=== PATIENT | male | born 1965 | race Caucasian/White ===

== ENCOUNTER 2020-12-19 16:27 | Inpatient (IN) | payer MEDICAID, SELFPAY ==
[~2020-12-19] VITALS: Ht 172.7 cm; Wt 108.9 kg
--- NOTE | 2020-12-19 16:28 | NUR ---
Placed in room 7 . Placed on surveillance monitor, blood pressure machine and pulse oximeter. To gown for exam. Side rails up.
[2020-12-19 16:30] VITALS: BP_SYST 118
--- NOTE | 2020-12-19 16:30 | NUR ---
RT AT THE BEDSIDE FOR VENT
--- NOTE | 2020-12-19 16:40 | NUR ---
PT BIBA FROM [facility] FOR FEVER AND TACHYCARDIA, PT PRESENTS ON A TRACH TO VENT, CANNON CATH, IV TO RIGHT FA. PULSE 120S, TEMP 99.2. PT IS AWAKE BUT NONVERBAL AND UNRESPONSIVE AT BASELINE. OTHER V/S STABLE
--- NOTE | 2020-12-19 18:15 | NUR ---
ER DR. TAPIA AT THE BEDSIDE EXAMINING PT
[2020-12-19] MEDS ORDERED: NACL 0.9% 1,000 ML IV ONE (18:30)
--- NOTE | 2020-12-19 18:40 | NUR ---
PORTABLE X-RAY AT THE BEDSIDE
--- NOTE | 2020-12-19 18:45 | NUR ---
LAB AT THE BEDSIDE FOR BLOOD DRAW
[2020-12-19 19:05] LABS: HEMOGLOBIN 7.4 g/dL (14.0-18.0); MEAN CORPUSCULAR HEMOGLOBIN 26 pg (27-31); MEAN CORPUSCULAR HGB CONC 31 % (32-36); MEAN CORPUSCULAR VOLUME 84 fL (79.0-98.0); PLATELET COUNT (AUTO) 231 K/uL (130-430); RED BLOOD CELL COUNT(AUTO) 2.84 MIL/uL (4.2-6.2); RED CELL DISTRIBUTION WIDTH 17.8 % (9.0-15.0); WHITE BLOOD COUNT (AUTO) 20.2 K/uL (4.8-10.8)
--- NOTE | 2020-12-19 19:19 | NUR ---
REPORT GIVEN TO VANGIE FRAZIER FOR CONTINUING CARE
--- NOTE | 2020-12-19 19:21 | NUR ---
Spoke with Keysha (patient's daughter) to update patient's status.
[2020-12-19 19:23] LABS: INR 1.1 (0.80-1.20); PROTHROMBIN TIME 11.6 SECS (9.5-12.5)
[2020-12-19 19:27] LABS: BILIRUBIN,URINE NEGATIVE (NEGATIVE); BLOOD, URINE 3+ (NEGATIVE); CLARITY/URINE CLOUDY (CLEAR); COLOR,URINE YELLOW (YELLOW); GLUCOSE,URINE NEGATIVE (NEGATIVE); KETONES,URINE NEGATIVE (NEGATIVE); LEUKOCYTE ESTERASE ,URINE 3+ (NEGATIVE); NITRITE, URINE NEGATIVE (NEGATIVE); PROTEIN URINE 2+ (NEGATIVE); UROBILINOGEN,URINE 0.2 (0.2-1.0)
[2020-12-19 19:35] LABS: ALBUMIN 1.4 g/dL (3.4-4.8); CALCIUM 8.1 mg/dL (8.4-11.0); CREATININE 4.06 mg/dL (0.55-1.30); PHOSPHORUS 3.8 mg/dL (2.7-4.5); TOTAL BILIRUBIN 0.3 mg/dL (0.0-1.0)
[2020-12-19 19:42] LABS: BAND % (MANUAL) 10 % (0-6); BASOPHILS % (MANUAL) 0 % (0-2); EOSINOPHILS % (MANUAL) 0 % (0-7); LYMPHOCYTES % (MANUAL) 19 % (20-46); MONOCYTES % (MANUAL) 7 % (0-11)
[2020-12-19] MEDS ORDERED: AMLO5TAB4 GT (19:42)
[2020-12-19] MEDS ORDERED: ASC500 GT (19:42)
[2020-12-19] MEDS ORDERED: LORA-258 GT (19:42)
[2020-12-19] MEDS ORDERED: ACET160S2 GT (19:42)
[2020-12-19] MEDS ORDERED: FOLI-43 PO (19:42)
[2020-12-19] MEDS ORDERED: ASPI-1393 GT (19:42)
[2020-12-19] MEDS ORDERED: HEPA500015 SUBCUT (19:42)
[2020-12-19] MEDS ORDERED: TAMS-11 GT (19:42)
[2020-12-19] MEDS ORDERED: VANCOMYCIN HCL 1,000 MG in D5W 250 ML IV ONE (19:45)
[2020-12-19] MEDS ORDERED: PIPERACILLIN/TAZOBACTAM 2.25 GM in NS 50 ML IV ONE (19:45)
--- NOTE | 2020-12-19 19:53 | NUR ---
COVID (Rapid) and MRSA swabs collected and sent to lab.
[2020-12-19 19:56] LABS: POTASSIUM 7.1 mmol/L (3.5-5.1)
[2020-12-19] MEDS ORDERED: ALBUTEROL SULFATE 0.083% 2.5 MG/3 ML VIAL.NEB INH ONE (20:00)
[2020-12-19] MEDS ORDERED: INSULIN REGULAR, HUMAN 100 UNITS in NS 99 ML IV ONE ×2 (20:00)
[2020-12-19] MEDS ORDERED: PIPERACILLIN/TAZOBACTAM 2.25 GM VIAL IV ONE (20:11)
[2020-12-19] MEDS ORDERED: INSULIN REGULAR, HUMAN 10 UNITS/0.1 ML INJ ONE (20:12)
--- NOTE | 2020-12-19 20:25 | NUR ---
Started IV Humulin R as protocol - BS 407 - 6 units/hr.
[2020-12-19] MEDS ORDERED: PIPE3.379 IV (20:34)
[2020-12-19] MEDS ORDERED: MULT-1100 GT (20:34)
[2020-12-19] MEDS ORDERED: METO-442 PO (20:34)
[2020-12-19] MEDS ORDERED: ZINC220T3 GT (20:34)
[2020-12-19] MEDS ORDERED: NPH,100V2 SQ (20:34)
[2020-12-19] MEDS ORDERED: PANT40SU2 GT (20:34)
[2020-12-19] MEDS ORDERED: INSU100V7 SUBCUT (20:34)
--- NOTE | 2020-12-19 20:34 | NUR ---
Medication reconciliation completed with information provided by snf. Any prior medication reconciliation on file was reviewed and corrected.
[2020-12-19 20:36] LABS: BACTERIA,URINE MODERATE /HPF (None Seen); WBC,URINE >100 /HPF (0-3); YEAST,URINE Many /HPF (None Seen)
--- NOTE | 2020-12-19 20:40 | NUR ---
Patient will be admitted to care of Dr. Penaloza. Admitted to telemetry unit.
[2020-12-19] MEDS ORDERED: VANCOMYCIN HCL 1000 MG/VIAL IV ONE (20:54)
--- NOTE | 2020-12-19 21:22 | NUR ---
RT at bedside for breathing treatment and ABG.
--- NOTE | 2020-12-19 21:25 | NUR ---
BS 273- Drip Humulin R as protocol to 3 units/hour
--- NOTE | 2020-12-19 22:25 | NUR ---
BS 270- continue drip 3 units/hour.
[2020-12-19 23:07] VITALS: BP_SYST 149
[2020-12-19 23:10] VITALS: BP_SYST 149
--- NOTE | 2020-12-19 23:43 | NUR ---
Called Dr. Ramirez and reported BS 271, Order D/C Humulin drip.
--- NOTE | 2020-12-19 23:48 | NUR ---
Patient will be admitted to care of Dr. Penaloza. Admitted to TELE unit. Will go to room 134A. Belongings list completed. Complete and up to date summary report printed. SBAR report to be given at bedside with opportunity for questions.
[2020-12-20 00:05] VITALS: BP_SYST 119
--- NOTE | 2020-12-20 00:05 | NUR ---
ADMISSION NOTE Received patient from ER via gurney. Patient admitted with diagnosis of SEPSIS. Patient is awake, alert, oriented X 0.Patient informed that LIZZETH will be HIS nurse and that their room number is 134A. Personal belongings checked and Belongings List documented. Call light within reach.
[2020-12-20 00:49] VITALS: BP_SYST 119
[2020-12-20] MEDS ORDERED: PIPERACILLIN/TAZO 3.375/DEX-IS 50 ML IV SCH (02:00)
[2020-12-20] MEDS ORDERED: AZITHROMYCIN 500 MG/VIAL (ZITHROMAX) IV ONE (02:41)
[2020-12-20] MEDS ORDERED: PIPERACILLIN/TAZOBACTAM 3.375 GM/VIAL (ZOSYN) IV ONE (02:41)
[2020-12-20] MEDS: NACL 0.9% 1,000 ML IV SCH ×3 (02:58→22:00)
[2020-12-20] MEDS: AZITHROMYCIN 500 MG in NS 250 ML IV SCH (02:59)
[2020-12-20] MEDS: ACETAMINOPHEN 325 MG TABLET PO PRN ×2 (03:07→21:27)
[2020-12-20] MEDS: INSULIN REGULAR, HUMAN 100 UNITS/ML, 10 ML VIAL (humuLIN R) SUBCUT PRN ×4 (03:08→16:16)
--- NOTE | 2020-12-20 03:34 | NUR ---
SPOKE TO DR. RANDLE REGARDING PATIENT HAVING A FEVER. INFORMED MD THAT WE DO NOT HAVE THE ADAPTER TO THE PATIENT'S GTUBE. DR. RANDLE ORDERED TYLENOL 650 MB VIA RECTAL SUPPOSITORY PRN MILD PAIN OR FEVER. ALSO INFORMED MD THAT PT'S HEART RATE HAS BEEN SUSTAINING IN THE 120'S-130'S. MD STATED TO MONITOR THE HEART RATE. WILL CONTINUE TO MONITOR.
[2020-12-20] MEDS: ACETAMINOPHEN 650 MG SUPP.RECT RC PRN ×2 (03:43→11:44)
--- NOTE | 2020-12-20 05:06 | NUR ---
Consultation Paged Reason for Consultation: SOB Was consult called: Y Person who was notified: Sandra Consulting Physician: Dr. Murray Ordering Physician: Dr. Burgos
--- NOTE | 2020-12-20 06:30 | NUR ---
CLOSING NOTE PT RESTING IN BED, NO S/S OF ACUTE DISTRESS. BREATHING IS UNLABORED TO VENTILATOR SETTINGS: AC RR 18, TV 500, FIO2 30%, PEEP 5. O2 SATURATION IS 97%. PT IS AFEBRILE AT THIS TIME. IVF ARE INFUSING AT ORDERED RATE, NO S/S OF INFILTRATION NOTED AT ORDERED RATE. SAFETY AND FALL PRECAUTIONS MAINTAINED. WILL MONITOR UNTIL PATIENT CARE IS ENDORSED TO DAY SHIFT RN.
[2020-12-20 07:00] LABS: BASOPHILS # (AUTO) 0.1 K/uL (0.0-0.2); BASOPHILS % (AUTO) 0.5 % (0.0-2.0); EOSINOPHILS # (AUTO) 0.4 K/uL (0.0-0.4); EOSINOPHILS % (AUTO) 2.2 % (0.0-4.0); HEMATOCRIT 22.5 % (36-54); HEMOGLOBIN 7.1 g/dL (14.0-18.0); LYMPHOCYTES # (AUTO) 2.2 K/uL (1.0-5.5); LYMPHOCYTES % (AUTO) 11.6 % (20.5-51.5); MEAN CORPUSCULAR HEMOGLOBIN 26 pg (27-31); MEAN CORPUSCULAR HGB CONC 31 % (32-36); MEAN CORPUSCULAR VOLUME 83 fL (79.0-98.0); MONOCYTES # (AUTO) 1.5 K/uL (0.0-1.0); MONOCYTES % (AUTO) 7.7 % (1.7-9.3); PLATELET COUNT (AUTO) 225 K/uL (130-430); RED BLOOD CELL COUNT(AUTO) 2.72 MIL/uL (4.2-6.2); RED CELL DISTRIBUTION WIDTH 18.1 % (9.0-15.0); WHITE BLOOD COUNT (AUTO) 19.2 K/uL (4.8-10.8)
[2020-12-20] MEDS: PIPERACILLIN/TAZOBACTAM 2.25 GM/ D5W 50 ML IV SCH ×8 (07:00→23:32)
[2020-12-20 07:43] LABS: ALANINE AMINOTRANSFERASE 54 U/L (12-78); ALBUMIN 1.3 g/dL (3.4-4.8); ANION GAP 13 (5-15); ASPARTATE AMINOTRANSFERASE 45 U/L (10-37); CALCIUM 8.3 mg/dL (8.4-11.0); CHLORIDE 114 mmol/L (98-107); CREATININE 3.87 mg/dL (0.55-1.30); GLUCOSE 226 mg/dL (70-99); SODIUM SERUM 147 mmol/L (136-145); TOTAL BILIRUBIN 0.2 mg/dL (0.0-1.0)
[2020-12-20 08:00] VITALS: BP_SYST 127
--- NOTE | 2020-12-20 08:00 | NUR ---
pt nonverbal,open eyes spontaneously,afebrile,sinus tachy hr 120-130,IVF continue infusing trach with ventilator on,HOB up 30 degrees,aspiration precaution maintained.total care provided safety maintained.
[2020-12-20 08:53] LABS: POTASSIUM 6.4 mmol/L (3.5-5.1)
[2020-12-20 08:54] LABS: GFR AFRICAN AMERICAN 21 mL/min (>90); UREA NITROGEN, BLOOD 165 mg/dL (8-21)
--- NOTE | 2020-12-20 10:00 | NUR ---
K level 6.4,bBUN 165,creatinine 3.87, here and notified of abnormal labs orders received and carried out.give kayexelate 30gm per GT once per dr order.
--- NOTE | 2020-12-20 10:03 | NUR ---
Nutrition Update : Trevor Scale: 9 noted Pt admitted for Sepsis. Diet: Nothing By Mouth BMI: 36.4 kg/m2 RD to follow per nutrition care standards.
[2020-12-20] MEDS ORDERED: SODIUM POLYSTYRENE SULFONATE 15 GM/60 ML UDBTL GT ONE (10:45)
--- NOTE | 2020-12-20 12:00 | NUR ---
pt has fever 102,give tylenol 650mg suppository per prn order for fever.blood sugar 205 give 4 units regular insulins as per sliding scale order
--- NOTE | 2020-12-20 12:00 | NUR ---
INFECTION CONSULT SPOKE TO GIANNI VALE NOTIFIED CONSULT WITH DR JONY MENESES RENAL FAILURE. Addendum: 12/20/20 at 1202 by Angela Navarrete RN CORRECTION RE ABOVE CONSULT NEPHROLOGY CONSULT
--- NOTE | 2020-12-20 12:03 | NUR ---
INFECTION CONSULT SPOKE TO GIANNI VALE MADE AWARE OF CONSULT WITH DR JUAN LUIS MENESES SEPSIS.
[2020-12-20 12:35] VITALS: BP_SYST 132
[2020-12-20] MEDS ORDERED: VANCOMYCIN HCL 1,500 MG in NS 250 ML IV ONE (13:00)
--- NOTE | 2020-12-20 14:00 | NUR ---
GT found dislodged and came out of abdomen, called and paged.
--- NOTE | 2020-12-20 15:21 | NUR ---
WOUND EVALUATION: Wound Consult received from Dr. Burgos. Thank you, Dr. Burgos, for the consult. Patient received in a Emmett Bed with an air 9000 mattress, awake, nonverbal, nonresponsive to verbal commands. Patient is unable to turn in bed independently. Trevor Score is a 9. Past Medical History: No past medical history available, and patient is non-responsive, so unable to obtain past medical history. Per assessment by Dr. Marko Church in ER: Sepsis, Acute Kidney Injury, Hyperkalemia, Tracheostomy, Chronic Ventilator dependence. Recent Labs: WBC 19.2, RBC 2.72, hemoglobin 7.1, hematocrit 22.5, sodium 147, potassium 6.4, chloride 114, BUN 165, creatinine 3.87, GFR 17, glucose 226, POC glucose 205, calcium 8.3, AST 45, ALT 54, serum total protein 8.5, albumin 1.3, PTT 21.6. Microbiology: Blood culture results x2 in progress. Urine culture results in progress. MRSA screen results in progress. Sputum culture results in progress. Intrinsic factors that delay wound healing: Severe Hypoalbuminemia, Hyperglycemia. Extrinsic factors that delay wound healing: Immobility. Wound Assessment: 1. Sacral-Coccygeal area: Unstageable pressure ulcer, present on admission. Wound bed has 50% black leathery slough, 40% yellow slough, 10% red tissue. Mild odor, scant yellow purulent drainage. Periwound intact. Surrounding tissue has dark discoloration, purple discoloration, and erythema around entire perimeter of wound. Right lateral aspect of wound near periwound has small open area, too small to measure depth with cotton-tipped applicator. Wound measures 12.2 cm x 8.3 cm x 1.9 cm. Recommend: Cleanse wound with normal saline. Apply moisture barrier cream to periwound. Apply Venelex ointment to wound bed. Pack wound with 1/2 inch iodoform packing strip. Cover with nonadhesive foam dressings, secure with transparent dressings. Perform wound care daily, and as needed for dressing soiling or dislodgment. Recommend surgical consult. 2. Left Buttock near Ischium: Unstageable pressure ulcer, present on admission. Wound bed has 90% black eschar, 10% yellow eschar. No odor, no drainage. Periwound intact. Wound measures 1.0 cm x 2.2 cm. Recommend: Cover site with foam dressing for protection. Change dressing and assess site daily, and as needed for dressing soiling or dislodgment. 3. Right Achilles: Chronic wound of unknown etiology, present on admission. Wound site has 100% black eschar. No odor, no drainage. Periwound intact. Wound measures 1.0 cm x 0.4 cm. 4. Right Heel: Chronic wound of unknown etiology, present on admission. Wound site has 100% black eschar. No odor, no drainage. Periwound intact. Wound measures 1.0 cm x 0.4 cm. Recommend: Cover both sites with same 4 x 4 foam dressing for protection. Change dressing and assess sites daily, and as needed for dressing soiling or dislodgment. Elevate, offload and float bilateral heels with one pillow lengthwise under each extremity at all times. 5. Left Lower Extremity: Multiple areas of light brown discoloration, present on admission. 6. Right Lower Extremity: Multiple areas of light brown discoloration, present on admission. Recommend: No dressings needed. Continue to monitor sites every shift. 7. Left Ear: Unstageable pressure ulcer, present on admission. Wound bed has 90% black eschar, 10% yellow eschar. No odor, scant yellow drainage. Periwound intact. Wound measures 1.9 cm x 1.0 cm. Recommend: Cleanse wound with normal saline. Apply sure prep to periwound. Apply Venelex ointment to wound. Cover site with 4x4 foam dressing. Perform wound care daily, and as needed for dressing soiling or dislodgment. Fold a towel into thirds (maintaining rectangular shape) and place underneath patient's head to elevate bilateral ears off of bed at all times. 8. Right Ear: Healing pressure ulcer of prior unknown stage, present on admission. Wound bed has 100% yellow colored tissue. No odor, no drainage, dry. Periwound intact. Surrounding tissue has scar tissue. Wound measures 0.6 cm x 1.2 cm. Recommend: Apply Betadine to wound. Cover site with 4x4 foam dressing. Perform wound care daily, and as needed for dressing soiling or dislodgment. Fold a towel into thirds (maintaining rectangular shape) and place underneath patient's head to elevate bilateral ears off of bed at all times. Also recommend: Reposition patient side to side only every 2 hours with pillow support and off-load pressure areas with pillows for pressure re-distribution. Offload, elevate and float bilateral heels with one pillow lengthwise under each extremity at all times. Perform skin care and monitor skin integrity Q shift. Use moisture barrier cream on buttocks and other moisture susceptible areas QID and as needed for soiling. Place patient on a low air-loss mattress.
[2020-12-20 15:41] VITALS: BP_SYST 108
--- NOTE | 2020-12-20 16:35 | NUR ---
GI CONSULT SPOKE TO MICHAEL VALE AND MADE AWARE FOR DR LAU CONSULT RE GT RE-INSERTION.
[2020-12-20] MEDS ORDERED: GASTROGRAFIN 120 ML ONE (17:51)
--- NOTE | 2020-12-20 18:00 | NUR ---
came and inserted new GT in abdomen,XRay taken at bedside for placement verification.
--- NOTE | 2020-12-20 19:15 | NUR ---
OPENING NOTES Patient resting in bed - no s/s pain or distress noted. Respirations even and unlabored - head of bed elevated. IV site patent - no s/s redness, infection, or infiltration. Bed locked and in lowest position. Call light within reach - bed alarm on.
[2020-12-20 20:00] VITALS: BP_SYST 119
--- NOTE | 2020-12-20 20:36 | NUR ---
Zoe Roy [phone], s/w Mela Addendum: 12/20/20 at 204 by Zelda Jha RN she said Dr. Howard is certified control systems technician
--- NOTE | 2020-12-20 21:24 | NUR ---
PAGED DR. LAU, DR. DICKEY CALLS BACK (HE IS COVERING) NOTIFIED OF GI TUBE CONFIRM PLACEMENT - STATES OK TO GIVE MEDICATION ASKED WHAT TUBE FEEDING TO GIVE - STATES "RESUME TUBE FEEDING."
[2020-12-20] MEDS: METOPROLOL TARTRATE 50 MG TABLET GT SCH (21:28)
--- NOTE | 2020-12-20 21:35 | NUR ---
CALLED DR. DICKEY TO CLARIFY TUBE FEEDING ORDER NO PAST ORDERS OF TUBE FEEDING. LOOKED IN CHART, AT PREVIOUS FACILITY GIVEN ISOSOURCE 1.5 CONTINUOUS at 75cc/hr. INFORMED DR. DICKEY - STATES TO CONTINUE. IF NOT AVAILABLE, ORDER JEVITY 1.2 at 75cc/hr.
[2020-12-21 01:04] VITALS: BP_SYST 117
--- NOTE | 2020-12-21 01:37 | NUR ---
CALLED DR. RANDLE - PT HEART RATE 130 Orders cardizem 10mg IVP once
[2020-12-21] MEDS ORDERED: DILTIAZEM HCL 25 MG/5 ML VIAL IVP ONE (01:45)
[2020-12-21] MEDS: AZITHROMYCIN 500 MG in NS 250 ML IV SCH (01:52)
[2020-12-21] MEDS: ACETAMINOPHEN 325 MG TABLET PO PRN ×2 (02:38→21:07)
[2020-12-21] MEDS: INSULIN REGULAR, HUMAN 100 UNITS/ML, 10 ML VIAL (humuLIN R) SUBCUT PRN ×5 (03:15→17:42)
--- NOTE | 2020-12-21 04:10 | NUR ---
PATIENT SUSTAINS TEMPERATURE AND HEART RATE - 101.2, 132, DR. RANDLE NOTIFIED ORDERS ADVIL 600mg ONCE
[2020-12-21] MEDS ORDERED: IBUPROFEN 200 MG TABLET GT ONE (04:15)
[2020-12-21] MEDS ORDERED: IBUPROFEN 600 MG TABLET PO ONE (04:30)
[2020-12-21] MEDS ORDERED: IBUPROFEN 600 MG TABLET ONE (04:39)
--- NOTE | 2020-12-21 05:34 | NUR ---
TEMPERATURE 102.0, HEART RATE 131 DR. RANDLE NOTIFIEd ORDERS NS 500mL BOLUS, TYLENOL 650mg ONCE ONE TIME
[2020-12-21] MEDS ORDERED: NS 500 ML IV ONE (05:45)
[2020-12-21] MEDS ORDERED: ACETAMINOPHEN 325 MG TABLET PO ONE (05:45)
[2020-12-21] MEDS: PIPERACILLIN/TAZOBACTAM 2.25 GM/ D5W 50 ML IV SCH ×6 (05:58→17:37)
[2020-12-21 06:45] LABS: VANCOMYCIN,RANDOM 31.6 ug/mL
[2020-12-21 07:30] VITALS: BP_SYST 106
[2020-12-21 08:00] VITALS: BP_SYST 106
[2020-12-21] MEDS: NACL 0.9% 1,000 ML IV SCH ×3 (08:00→21:05)
[2020-12-21] MEDS: METOPROLOL TARTRATE 50 MG TABLET GT SCH ×2 (09:00→21:06)
[2020-12-21] MEDS: BALSAM PERU/CASTOR OIL 60 GM OINT...G. TP SCH (09:00)
--- NOTE | 2020-12-21 09:00 | NUR ---
Note Pt's ears bilaterally red, skin intact and no open areas/bleeding noted at this time. Pt turned q2' and ears are protected from pressure. Pt's girlfriend at bedside and stated this happened in previous hospital not at [facility].
--- NOTE | 2020-12-21 09:22 | NUR ---
Note Dr Garibay from [facility] called (hospitalist) and stated pt's urine culture is resistant to Cefepime, Zosyn, Meropenem. Sensitive to Cipro and Gentamicin. requested to let Dr Penaloza know this information. Dr Penaloza paged.
--- NOTE | 2020-12-21 09:47 | NUR ---
Note Dr Penaloza on the floor and was notified of Urine culture per Dr Garibay.
[2020-12-21 12:40] VITALS: BP_SYST 102
--- NOTE | 2020-12-21 13:13 | NUR ---
CONSULTATION PAGED/CALLED Reason for Consultation: TRACH Person Who was Notified: MARCK Consulting Physician: LORI Budget Counselor Specialty: PULRAUDEL Ordering Physician: MARÍA ELENA
[2020-12-21] MEDS: FLUCONAZOLE 100 mg/ NS 50 ML IV SCH (13:50)
--- NOTE | 2020-12-21 14:22 | NUR ---
Note Pt off the floor via bed for CT of head/brain at 1400. Pt back in room and CXR was done portable n room. Pt was reconnected to GT feedings and IVF's.
--- NOTE | 2020-12-21 15:25 | NUR ---
Note Dr Penaloza was called at [address] brain/head results, waiting for call back.
--- NOTE | 2020-12-21 15:31 | NUR ---
Dietitian Recommendations * Recommend continuing Jevity 1.2 at 75 ml/hr w/ Kelby BID Provides: 2160 kcal/day, 100 gm protein/day, and 1453 ml free water/day Meets: 90% of lower end of estimated caloric need and 83% of upper end of estimated protein needs * Free Water Flush clarification per physician TAVIA RD Please refer to Nutrition Assessment for details. Addendum: 12/21/20 at [address] Amended: Links added. Addendum: 12/24/20 at [address] CORRECTION: Dietitian Recommendations * Recommend continuing Jevity 1.2 at 75 ml/hr via GT Provides: 2160 kcal/day, 100 gm protein/day, and 1453 ml free water/day Meets: 90% of lower end of estimated caloric need and 83% of upper end of estimated protein needs * Free Water Flush clarification per physician LP, RD
[2020-12-21 16:34] VITALS: BP_SYST 104
--- NOTE | 2020-12-21 18:30 | NUR ---
Note Pt was given hygiene care and bed bath frequently for incontinence of bowel movements. GT feedings infusing well. Ni catheter intact and draining well. IV in right forearm intact and patent infusing IVF's well. Pt's coccyx dressing changed and kept CDI. Pt was checked on q1' and PRN all shift for needs and care. Pt's bed in low position and bed alarm on all shift. Tele unit attached and intact. Trach care done by RT all shift. Pt's heels elevated on pillows. No needs noted at this time. Call light within reach. Dr Penaloza did not call back - 2 calls made.
[2020-12-21 18:46] LABS: BASOPHILS # (AUTO) 0.1 K/uL (0.0-0.2); BASOPHILS % (AUTO) 0.5 % (0.0-2.0); EOSINOPHILS # (AUTO) 0.4 K/uL (0.0-0.4); EOSINOPHILS % (AUTO) 1.6 % (0.0-4.0); LYMPHOCYTES # (AUTO) 2.5 K/uL (1.0-5.5); LYMPHOCYTES % (AUTO) 11.1 % (20.5-51.5); MEAN CORPUSCULAR HEMOGLOBIN 26 pg (27-31); MEAN CORPUSCULAR HGB CONC 30 % (32-36); MONOCYTES # (AUTO) 1.6 K/uL (0.0-1.0); NEUTROPHILS # (AUTO) 18.3 K/uL (1.8-7.7); NEUTROPHILS % (AUTO) 79.8 % (40.0-70.0); PLATELET COUNT (AUTO) 215 K/uL (130-430); RED BLOOD CELL COUNT(AUTO) 2.64 MIL/uL (4.2-6.2); RED CELL DISTRIBUTION WIDTH 18.5 % (9.0-15.0)
[2020-12-21 19:20] LABS: CALCIUM 8.1 mg/dL (8.4-11.0); CREATININE 4.28 mg/dL (0.55-1.30); TOTAL BILIRUBIN 0.2 mg/dL (0.0-1.0)
[2020-12-21 19:21] LABS: ALBUMIN 1.3 g/dL (3.4-4.8)
--- NOTE | 2020-12-21 19:30 | NUR ---
opening note Received patient resting in bed, no distress. He is on ventilator with settings as ordered. IVF infusing via IV to RFA. skin is warm and dry. Ni drainage bag to gravity. G-tube feeding is running at 75ml/hr. Bed is locked in lowest position, side rails up, bed alarm on.
--- NOTE | 2020-12-21 19:52 | NUR ---
Critical Labs/Dr. Burgos Paged and s/w Dr. Burgos to report critical labs. HH 6.9/22.9, K 7.0, Cl 120, BUN/Cr 161/4.28 She asked what time where labs drawn and why reporting now. I explained there is delay in lab regarding data entry associate, short staff and unable to complete enter earlier. She said these results may not be accurate and wants gave orders for repeat stat CBC, BMP; TORB
[2020-12-21 20:20] VITALS: BP_SYST 129
--- NOTE | 2020-12-21 21:07 | NUR ---
Meds / Tylenol - fever Scheduled medication, Lopressor given. Patient had fever of 101.0 (temporal scan) and HR 127. Tylenol was given along with cooling measures. GT was assessed for residual and 210 ml noted and returned. GT-feeding was placed on hold. WCTM
[2020-12-21 21:43] LABS: BASOPHILS # (AUTO) 0.1 K/uL (0.0-0.2); BASOPHILS % (AUTO) 0.3 % (0.0-2.0); EOSINOPHILS # (AUTO) 0.5 K/uL (0.0-0.4); EOSINOPHILS % (AUTO) 2.2 % (0.0-4.0); HEMATOCRIT 23.3 % (36-54); HEMOGLOBIN 7.1 g/dL (14.0-18.0); LYMPHOCYTES % (AUTO) 8.7 % (20.5-51.5); MEAN CORPUSCULAR HEMOGLOBIN 26 pg (27-31); MEAN CORPUSCULAR HGB CONC 31 % (32-36); MEAN CORPUSCULAR VOLUME 84 fL (79.0-98.0); MONOCYTES # (AUTO) 1.5 K/uL (0.0-1.0); MONOCYTES % (AUTO) 6.5 % (1.7-9.3); NEUTROPHILS # (AUTO) 19.1 K/uL (1.8-7.7); NEUTROPHILS % (AUTO) 82.3 % (40.0-70.0); PLATELET COUNT (AUTO) 204 K/uL (130-430); RED BLOOD CELL COUNT(AUTO) 2.77 MIL/uL (4.2-6.2); RED CELL DISTRIBUTION WIDTH 18.1 % (9.0-15.0); WHITE BLOOD COUNT (AUTO) 23.2 K/uL (4.8-10.8)
[2020-12-21 22:08] LABS: CALCIUM 8.4 mg/dL (8.4-11.0); CREATININE 4.49 mg/dL (0.55-1.30)
[2020-12-21 22:18] LABS: ALBUMIN 1.2 g/dL (3.4-4.8); TOTAL BILIRUBIN 0.2 mg/dL (0.0-1.0)
--- NOTE | 2020-12-21 22:21 | NUR ---
temp recheck 99.1 temporal scan and HR 110
[2020-12-21 23:00] LABS: POTASSIUM 6.6 mmol/L (3.5-5.1)
[2020-12-21] MEDS ORDERED: SODIUM POLYSTYRENE SULFONATE 15 GM/60 ML UDBTL GT ONE (23:30)
[2020-12-22] LABS: HEMOGLOBIN 6.9 g/dL (14.0-18.0)
[2020-12-22 00:01] LABS: HEMATOCRIT 22.9 % (36-54)
[2020-12-22 00:04] LABS: MEAN CORPUSCULAR VOLUME 84 fL (79.0-98.0)
[2020-12-22] MEDS: INSULIN REGULAR, HUMAN 100 UNITS/ML, 10 ML VIAL (humuLIN R) SUBCUT PRN ×6 (00:06→23:19)
[2020-12-22] MEDS: PIPERACILLIN/TAZOBACTAM 2.25 GM/ D5W 50 ML IV SCH ×10 (00:13→23:09)
--- NOTE | 2020-12-22 01:20 | NUR ---
GT Feeding - residual Residual remains at 100 ml, feeding remains on hold. WCTM
--- NOTE | 2020-12-22 02:41 | NUR ---
fever - 100.3 tylenol given
[2020-12-22] MEDS: AZITHROMYCIN 500 MG in NS 250 ML IV SCH (02:42)
[2020-12-22] MEDS: ACETAMINOPHEN 325 MG TABLET PO PRN (02:43)
--- NOTE | 2020-12-22 02:53 | NUR ---
Temp recheck 99.5.
--- NOTE | 2020-12-22 06:15 | NUR ---
Accucheck 237 mg/dL; covered w/ 4U regular insulin
[2020-12-22 07:09] LABS: BASOPHILS # (AUTO) 0.1 K/uL (0.0-0.2); BASOPHILS % (AUTO) 0.3 % (0.0-2.0); EOSINOPHILS # (AUTO) 0.5 K/uL (0.0-0.4); EOSINOPHILS % (AUTO) 2.1 % (0.0-4.0); LYMPHOCYTES # (AUTO) 2.6 K/uL (1.0-5.5); LYMPHOCYTES % (AUTO) 9.9 % (20.5-51.5); MEAN CORPUSCULAR HEMOGLOBIN 26 pg (27-31); MEAN CORPUSCULAR HGB CONC 30 % (32-36); MEAN CORPUSCULAR VOLUME 85 fL (79.0-98.0); MONOCYTES # (AUTO) 1.8 K/uL (0.0-1.0); NEUTROPHILS # (AUTO) 20.8 K/uL (1.8-7.7); NEUTROPHILS % (AUTO) 80.7 % (40.0-70.0); PLATELET COUNT (AUTO) 194 K/uL (130-430); RED BLOOD CELL COUNT(AUTO) 2.57 MIL/uL (4.2-6.2); RED CELL DISTRIBUTION WIDTH 18.1 % (9.0-15.0); WHITE BLOOD COUNT (AUTO) 25.8 K/uL (4.8-10.8)
[2020-12-22 07:39] LABS: ALBUMIN 1.1 g/dL (3.4-4.8); CALCIUM 8.3 mg/dL (8.4-11.0); CREATININE 4.62 mg/dL (0.55-1.30); TOTAL BILIRUBIN 0.2 mg/dL (0.0-1.0); VANCOMYCIN,RANDOM 23.1 ug/mL
[2020-12-22 07:54] VITALS: BP_SYST 114
[2020-12-22] MEDS: METOPROLOL TARTRATE 50 MG TABLET GT SCH ×2 (07:57→22:41)
[2020-12-22 08:49] LABS: POTASSIUM 6.4 mmol/L (3.5-5.1)
[2020-12-22 08:50] LABS: HEMATOCRIT 21.9 % (36-54)
[2020-12-22 08:51] LABS: HEMOGLOBIN 6.6 g/dL (14.0-18.0)
--- NOTE | 2020-12-22 08:55 | NUR ---
RN NOTES: LAB CALLED FOR CRITICAL LAB RESULTS. INFORMED PRIMARY RN JANESSA.
[2020-12-22] MEDS ORDERED: SODIUM POLYSTYRENE SULFONATE 15 GM/60 ML UDBTL PO ONE (09:15)
--- NOTE | 2020-12-22 09:30 | NUR ---
NOTE PT'S FATHER IVONE CALLED AT 0924AM. LEFT MESSAGE AND WAITING FOR CALL BACK. NEED CONSENT FOR BLOOD TRANSFUSION (STAT) PER DR RING'S ORDER.
[2020-12-22] MEDS: BALSAM PERU/CASTOR OIL 60 GM OINT...G. TP SCH (09:47)
--- NOTE | 2020-12-22 10:00 | NUR ---
Note Dr Penaloza came to pt's room to assess pt, notified MD that we are waiting for pt's father to call back to get consent for blood transfusion.
[2020-12-22 11:44] VITALS: BP_SYST 119
[2020-12-22] MEDS: FLUCONAZOLE 100 mg/ NS 50 ML IV SCH (12:31)
--- NOTE | 2020-12-22 13:50 | NUR ---
NOTE Pt's father Camille called back after 2nd call and consented to Blood Transfusion. Consent form sent to Blood Bank for 1 unit of PRBC at this time. Pt going off the floor via bed to CT dept for CT of head/brain. IVF's saline locked and GT feedings clamped.
[2020-12-22] MEDS: NACL 0.9% 1,000 ML IV SCH ×2 (14:00→23:08)
[2020-12-22 15:36] VITALS: BP_SYST 104
--- NOTE | 2020-12-22 19:00 | NUR ---
Note Pt was given 1 unit PRBC. Pt's sister, girlfriend at bedside. Pt's sister Joelle stated theor father is [place] and does not speak [place] very well. Asked we call Joelle Aiden [phone] or sister Keysha Mccollum [phone]. Dr Wilson was called and notified family in agreement to have dialysis. Pt was checked no Q1 and PRN all shift for needs and care. Call light within reach.
--- NOTE | 2020-12-22 19:30 | NUR ---
OPENING NOTE RECEIVED REPORT FROM DAY RN. FAMILY AT BEDSIDE. PT IS ON VENTILATOR WITH RESPIRATIONS EVEN AND UNLABORED. NO SIGNS OF DISTRESS NOTED. G-TUBE OFF AT THIS TIME FOR RESIDUAL OVER 200ML. RFA 20G IV PATENT AND INTACT RUNNING IVF. CANNON INTACT DRAINING YELLOW FLUID BY GRAVITY. BED IN LOWEST AND LOCKED POSITION. CALL LIGHT WITHIN REACH. SAFETY PRECAUTIONS IN PLACE. WILL CONTINUE TO MONITOR.
--- NOTE | 2020-12-22 19:34 | NUR ---
CALLED DR JONY VALE. AWAITING CALLBACK.
--- NOTE | 2020-12-22 19:37 | NUR ---
DR BORGES RETURN CALL UPDATED MD ON FAMILY CONSENT FOR PT DIALYSIS. PER , ORDERS FOR TO INSERT MADIE CATHETER FOR DIALYSIS. TO/RB. VERBALIZED AND VERIFIED ORDER.
[2020-12-22 20:00] VITALS: BP_SYST 107
[2020-12-23] VITALS (22 sets, daily range): BP systolic 84–137
[2020-12-23] MEDS: AZITHROMYCIN 500 MG in NS 250 ML IV SCH (02:08)
--- NOTE | 2020-12-23 02:23 | NUR ---
CONSULTATION PAGED/CALLED Reason for Consultation: MADIE CATHETER PLACEMENT FOR DIALYSIS Person Who was Notified: ERNESTO Consulting Physician: DR LAVON SCOTT Commercial Insurance Underwriter Specialty: Ordering Physician: JONY
[2020-12-23] MEDS: PIPERACILLIN/TAZOBACTAM 2.25 GM/ D5W 50 ML IV SCH ×6 (05:05→18:40)
[2020-12-23] MEDS: ACETAMINOPHEN 325 MG TABLET PO PRN ×2 (05:05→11:22)
[2020-12-23] MEDS: INSULIN REGULAR, HUMAN 100 UNITS/ML, 10 ML VIAL (humuLIN R) SUBCUT PRN ×3 (05:10→18:44)
[2020-12-23] MEDS: NACL 0.9% 1,000 ML IV SCH ×2 (05:13→10:17)
--- NOTE | 2020-12-23 05:15 | NUR ---
ROUNDS HYGIENE CARE DONE. LINENS CHANGED. NEW G-TUBE TUBING AND FEEDING SECURED. RESIDUAL IS 150ML. WILL KEEP FEEDING OFF PER ORDERS UNTIL RESIDUAL LOWERS. ABDOMEN NONDISTENDED AND SOFT. CANNON INTACT AND DRAINING YELLOW FLUID BY GRAVITY. RESPIRATIONS EVEN AND UNLABORED ON MECHANICAL VENTILATOR. RIGHT FA IV INTACT RUNNING IVF. DRESSING CLEAN, DRY AND INTACT. COLD PACKS APPLIED BILATERALLY UNDER ARMPITS TO HELP WITH ELEVATED TEMPERATURE OF 100.3. PT IS TOLERATING WELL. NO GRIMACING OR GUARDING NOTED. G-TUBE INTACT. DRESSING CLEAN AND DRY. ALL NEEDS MET THROUGHOUT THE NIGHT. WILL ENDORSE TO DAY RN.
--- NOTE | 2020-12-23 06:57 | NUR ---
CLOSING NOTE PATIENT LAYING IN BED WITH EYES CLOSED. NO SIGNS OF DISTRESS NOTED. CANNON INTACT AND DRAINING YELLOW FLUID BY GRAVITY. RESPIRATIONS EVEN AND UNLABORED ON MECHANICAL VENTILATOR. RIGHT FA IV INTACT RUNNING IVF. DRESSING CLEAN, DRY AND INTACT. G-TUBE INTACT. DRESSING CLEAN AND DRY. SAFETY PRECAUTIONS IN PLACE. CALL LIGHT WITHIN REACH. BED IN LOWEST AND LOCKED POSITION. ALL NEEDS MET THROUGHOUT THE NIGHT. WILL ENDORSE TO DAY RN.
[2020-12-23] MEDS: BALSAM PERU/CASTOR OIL 60 GM OINT...G. TP SCH (09:00)
--- NOTE | 2020-12-23 09:14 | NUR ---
received report from garrett nurse checked pt pt. is nonverbal , lethergic. bp79/57. hr 120,tem 100.0. conitnue on vent.dr [email or web address].here informed for pt conditon. received order to transfer pt icu.
[2020-12-23] MEDS ORDERED: NACL 0.9% 1,000 ML IV ONE (09:15)
--- NOTE | 2020-12-23 09:35 | NUR ---
RECEIVED PATIENT FROM TELE, REPORT GIVEN BY THE TECHNICAL SUPPORT MANAGER, USING SBAR APPROACH. IVF NS @ 100,ON AC RATE OF 18 TIDAL VOLUME 500 FIO2 OF 30 AND PEEP OF 5, TUBE FEEDING IN PLACE, CANNON CATHETER DRAINING TO GRAVITY, REGINE IN COLOR, BED LOCKED AT LOWEST POSITION, FALL AND SAFETY PRECAUTION IN PLACE.
--- NOTE | 2020-12-23 09:37 | NUR ---
rt notes 0937 Moved pt to ICU for hypotension. Transfer pt via transport vent. Pt on same vent settings, increased FIO2 to 40%, pt was saturating 90% after arrival to ICU. RN Vance aware of changes. will continue to monitor pt.
[2020-12-23] MEDS ORDERED: NOREPINEPHRINE 4 MG/4 ML VIAL IV ONE ×2 (09:59→18:55)
[2020-12-23] MEDS: NOREPINEPHRINE BITARTRATE 4 MG in NS 246 ML IV PRN ×2 (10:21→15:09)
--- NOTE | 2020-12-23 11:00 | NUR ---
PATIENT FATHER IS AT BEDSIDE
[2020-12-23] MEDS: METOPROLOL TARTRATE 50 MG TABLET GT SCH ×2 (11:16→21:00)
[2020-12-23 11:21] LABS: BASOPHILS # (AUTO) 0.1 K/uL (0.0-0.2); BASOPHILS % (AUTO) 0.4 % (0.0-2.0); EOSINOPHILS # (AUTO) 0.5 K/uL (0.0-0.4); EOSINOPHILS % (AUTO) 1.8 % (0.0-4.0); HEMATOCRIT 24.3 % (36-54); HEMOGLOBIN 7.3 g/dL (14.0-18.0); LYMPHOCYTES # (AUTO) 3.8 K/uL (1.0-5.5); MEAN CORPUSCULAR HEMOGLOBIN 26 pg (27-31); MEAN CORPUSCULAR HGB CONC 30 % (32-36); MEAN CORPUSCULAR VOLUME 87 fL (79.0-98.0); MONOCYTES # (AUTO) 1.3 K/uL (0.0-1.0); MONOCYTES % (AUTO) 4.9 % (1.7-9.3); NEUTROPHILS % (AUTO) 77.9 % (40.0-70.0); PLATELET COUNT (AUTO) 198 K/uL (130-430); RED BLOOD CELL COUNT(AUTO) 2.79 MIL/uL (4.2-6.2); RED CELL DISTRIBUTION WIDTH 18.7 % (9.0-15.0); WHITE BLOOD COUNT (AUTO) 25.6 K/uL (4.8-10.8)
[2020-12-23 11:32] LABS: CALCIUM 7.9 mg/dL (8.4-11.0); CREATININE 5.52 mg/dL (0.55-1.30)
[2020-12-23 11:37] LABS: ALBUMIN 1.2 g/dL (3.4-4.8); TOTAL BILIRUBIN 0.3 mg/dL (0.0-1.0)
[2020-12-23 11:40] LABS: POTASSIUM 5.9 mmol/L (3.5-5.1)
[2020-12-23] MEDS ORDERED: HEPARIN SODIUM,PORCINE 5,000 UNITS/ML VIAL IVP ONE (12:00)
[2020-12-23 12:05] LABS: INR 1.4 (0.80-1.20); PROTHROMBIN TIME 14.1 SECS (9.5-12.5)
[2020-12-23] MEDS: D5W 1,000 ML IV SCH (12:39)
--- NOTE | 2020-12-23 13:37 | NUR ---
RT NOTES 1337 TITRATED FIO2 TO 30%, PT SATURATING 96%. WILL MONITOR PT.
[2020-12-23] MEDS: FLUCONAZOLE 100 mg/ NS 50 ML IV SCH (14:57)
[2020-12-23] MEDS ORDERED: NOREPINEPHRINE BITARTRATE 4 MG in D5W 246 ML IV PRN (19:00)
--- NOTE | 2020-12-23 19:05 | NUR ---
PATIENT GIRLFRIEND ROMERO IS AT BEDSIDE.
--- NOTE | 2020-12-23 20:00 | NUR ---
PATIENT WAS ACCEPTED AND AASSESS DONE PATIENT WAS ON DIALYSIS AN ON NEW SET TIME BEING DIALYSIS WILL TAKE TWO HOUR STAT BY THE DIALYSIS NURSE STABLE NOTICE NO MOVEMENT FROM THE PATIENT PATIENT HAD AN CVA IN THE PAST PATIENT IS ON LEVOPHED DRIP TO MAINTAIN BP NOTICE IVF USION 59ML/ HR, WILL NEED TO DOUBLE THE CONCENTRATION ,THIS WA INFORMED TO THE EVEN CHARGE NURSE STAT SHE WILL TAKE CARE OF IT, STABLE
[2020-12-23] MEDS ORDERED: HEPARIN SODIUM, PORCINE 10,000 UNITS/ 10 ML VIAL MC ONE (20:30)
[2020-12-23] MEDS ORDERED: HEPARIN SODIUM,PORCINE 5,000 UNITS/ML VIAL ONE (21:05)
--- NOTE | 2020-12-23 22:00 | NUR ---
PATIENT HAD FINISHED DIALYSIS NO FLUID WERE REMOVED ONLY CLEAN AT THIS [facility] BATH WILL BE GIVEN STABLE WHEN PATIENT WAS TURN ON TO LEFT SIDE TO DO BACK , NOTICE THE SARCAL WOUND WAS VERY LARGE WITH AREA NEED TO BE DEBRIDED UNABLE TO APPLIED CREAM TO THIS WOUND UNTIL THERE IS HEALTH TISSUE ,PATIENT HAVE PIKE TEMP , WILL GIVEN TYLENOL WHEN DUE, STABLE
[2020-12-23] MEDS ORDERED: AZITHROMYCIN 500 MG/VIAL (ZITHROMAX) IV ONE (23:04)
[2020-12-24] VITALS (27 sets, daily range): BP systolic 95–133
--- NOTE | 2020-12-24 | NUR ---
PATIENT TEMP,102.2 WILL GIVEN ANTIBIOTIC AND CHECK TEMP LATER, STABLEAN RETAL TUBE HAS BEEN INSERTED , STOOL ARE WATER AND BLACK , CANNON INTACT WITH REGINE URINE LARGE AMOUNT AND THE PATIENT IS ON DIALYSIS , STABLE
[2020-12-24] MEDS ORDERED: NOREPINEPHRINE 4 MG/4 ML VIAL IV ONE (00:11)
[2020-12-24] MEDS: D5W 1,000 ML IV SCH ×4 (00:30→21:38)
[2020-12-24] MEDS: PIPERACILLIN/TAZOBACTAM 2.25 GM/ D5W 50 ML IV SCH ×8 (01:01→18:21)
[2020-12-24] MEDS: INSULIN REGULAR, HUMAN 100 UNITS/ML, 10 ML VIAL (humuLIN R) SUBCUT PRN ×4 (01:03→18:22)
[2020-12-24] MEDS: AZITHROMYCIN 500 MG in NS 250 ML IV SCH (02:30)
--- NOTE | 2020-12-24 03:00 | NUR ---
PATIENT TEMP 103.1 TYLENOL 650 MG PO WAS GIVEN WILL REPEAT TEMP, IN FOUR HR, STABLE
[2020-12-24] MEDS: ACETAMINOPHEN 325 MG TABLET PO PRN ×4 (03:22→12:56)
--- NOTE | 2020-12-24 04:00 | NUR ---
PATIENT TEMP, 101.9 HAS COME DOWN SOME WILL CHECK IN TWO HR, TABLE , STABLE TUBE FEEDING HAS BEEN OFF DUE TO VERY HI RESIDUAL 200 110 ML WILL CHECK LATER SMALL WATER FLUSHES GIVEN STABLE RESTING NOTICE THE PATIENT WAS DE SAT TO 88 PATIENT IS STABLE AND RESTING DURING THIS TIME CALL THE RT TO CHECK THE VENT AND PATIENT , 100 % OXYGEN, ASK RT TO INCREASED THE OXYGEN , FIO2 30% , STABLE AT THIS TIME FIO2 REMAIN 30% STABLE
[2020-12-24] MEDS: NOREPINEPHRINE BITARTRATE 8 MG in D5W 242 ML IV PRN ×2 (05:15→10:18)
--- NOTE | 2020-12-24 06:00 | NUR ---
PATIENT TEMP, 100 , AND PATIENT HAD DE SAT AGAIN IN THE 80 ASK ON NEW RT IF CHECK THE PATIENT AND INCREASED THE OXYGEN WAS DONE NOW 40$ STABLE WILL CONTINUED WITH PLAN OF CARE STABLE
[2020-12-24 07:05] LABS: BASOPHILS # (AUTO) 0.1 K/uL (0.0-0.2); BASOPHILS % (AUTO) 0.4 % (0.0-2.0); EOSINOPHILS # (AUTO) 0.6 K/uL (0.0-0.4); EOSINOPHILS % (AUTO) 2.4 % (0.0-4.0); HEMATOCRIT 22.2 % (36-54); LYMPHOCYTES % (AUTO) 12.8 % (20.5-51.5); MEAN CORPUSCULAR HEMOGLOBIN 26 pg (27-31); MEAN CORPUSCULAR HGB CONC 31 % (32-36); MEAN CORPUSCULAR VOLUME 85 fL (79.0-98.0); MONOCYTES # (AUTO) 0.9 K/uL (0.0-1.0); NEUTROPHILS # (AUTO) 18.6 K/uL (1.8-7.7); PLATELET COUNT (AUTO) 171 K/uL (130-430); RED BLOOD CELL COUNT(AUTO) 2.61 MIL/uL (4.2-6.2); RED CELL DISTRIBUTION WIDTH 18.1 % (9.0-15.0); WHITE BLOOD COUNT (AUTO) 23.1 K/uL (4.8-10.8)
[2020-12-24] MEDS ORDERED: VANCOMYCIN HCL 500 MG in NS 100 ML IV ONE (09:00)
[2020-12-24 09:07] LABS: ALBUMIN 1.1 g/dL (3.4-4.8); CALCIUM 7.7 mg/dL (8.4-11.0); CREATININE 4.36 mg/dL (0.55-1.30); TOTAL BILIRUBIN 0.4 mg/dL (0.0-1.0)
[2020-12-24] MEDS: BALSAM PERU/CASTOR OIL 60 GM OINT...G. TP SCH (09:35)
[2020-12-24] MEDS: METOPROLOL TARTRATE 50 MG TABLET GT SCH ×2 (09:35→21:37)
[2020-12-24 10:12] LABS: HEMOGLOBIN 6.8 g/dL (14.0-18.0)
[2020-12-24 13:13] LABS: NEUTROPHILS % (AUTO) 80.4 % (40.0-70.0)
[2020-12-24] MEDS: FLUCONAZOLE 100 mg/ NS 50 ML IV SCH (13:13)
--- NOTE | 2020-12-24 15:23 | NUR ---
Nutrition F/U RD reviewed pt's current EMR record including diet Hx, physician notes, nursing notes, pertinent labs/meds/procedures, care trends, and care activity. Admission Dx: Sepsis PMH: anoxic brain injury, trach, DM, and HTN per physician notes Pt also found w/ septic shock, ARF 2/2 ATN, complicated UTI, HABP, Candiduria, anoxic encephalopathy, and dislodged GT per physician notes SARS-CoV-2 Ag (Rapid) Negative 12/19 Current Diet Order/Nutrition Support: Jevity 1.2 at 75 ml/hr, Free Water Flush: 250 via GT x3 days Subjective Info: RD rounded to pt's bedside -- TF was seen off. Bedscale wt taken: 224# -- unsure of reliability. RD spoke w/ pt's primary RN who reported that pt's TF had been off for the past 1.[address] visit earlier this afternoon. She also reported that maintenance supervisor 2nd shift had TF off for periods of time as well d/t high GRV (250 ml). RN stated that pt is also having a lot of liquid stools. RN stated that pt was started on dialysis yesterday and will receive a blood transfusion as well as HD today. Per EMR review, pt transferred to ICU yesterday d/t hypotension; new orders for debridement of sacrococcyx decubitus wound and CT abd/pelvis d/t sepsis/tachycardia; TF Rate: 75 ml 10/10; GRV: 400 ml 10/10; TF Intakes: 225 ml 10/10; abd is hypoactive; last BM x4 10/9; Trevor scale: 10 -- Linker Up note 12/20: 1. Sacral-Coccygeal area: Unstageable pressure ulcer, present on admission. 2. Left Buttock near Ischium: Unstageable pressure ulcer, present on admission. 3. Right Achilles:Chronic wound of unknown etiology, present on admission. 4. Right Heel: Chronic wound of unknown etiology, present on admission. 5. Left Lower Extremity: Multiple areas of light brown discoloration, present on admission. 6. Right Lower Extremity: Multiple areas of light brown discoloration, present on admission. 7. Left Ear: Unstageable pressure ulcer, present on admission. 8. Right Ear: Healing pressure ulcer of prior unknown stage, present on admission. Pt is not meeting nutritional needs and would benefit from alternative TF formula to better meet nutritional requirements. Pertinent Medications: D5%W at 125 ml/hr (510 kcal/day), lopressor, SSI Pertinent Labs: WBC 23.1 H, Na 150 H, BUN 92 H, CRE 4.36 H, BG 268 H, POC BG 297 H Ht: 5'8" Wt: 240#/109 kg (12/21) -- stable Body Mass Index: 36.49 kg/m2 %IBW: 156 [place]/Adjusted Body Weight: IBW: 154#/70 kg. Adj IBW (obesity): 176#/80 kg Recent Weight Change: Unable to verify Weight Status: Obese NEW Estimated Energy Expenditure (kcals/day) 2408 kcal/day (PSU d/t critical illness) Estimated Protein Required (g/day) 96-120 gm/day (1.2-1.5 gm/kg Adj IBW d/t ARF, sepsis, wound, new HD) Estimated Fluid Required (l/day) Per physician d/t ARF Problem/Etiology/Signs/Symptoms Increased nutritional needs related to metabolic demands as evidenced by estimated nutritional requirements for sepsis and wound healing. *ongoing Complicated GI function related to compromised gut integrity as evidenced by elevated GRV and loose stools. *new Altered nutrition-related labs related to endocrine and renal dysfunction as evidenced by abnormal BUN, CRE, BG, and POC BG lab values. *new Expected Outcomes/Goals - Monitor appetite and PO intakes w/ goal of pt meeting at least 80% of estimated nutritional needs, labs trending WNL, normal GI function, and skin integrity/wt maintenance Dietitian Recommendations * Recommend Nepro 45 ml/hr (goal rate) via GT Provides (w/ current D5%W infusion rate): 2454 kcal/day, 107 gm protein/day, and 1453 ml free water/day Meets: 102% of estimated caloric need and 89% of upper end of estimated protein needs * Free Water Flush clarification per physician d/t ARF * Consider prokinetic agent for improved gut motility * Consider Banatrol (banana flakes) BID if loose stools persist Follow Up High Risk: F/U in 2-3 days Addendum: 12/24/20 at [address] CORRECTION: Dietitian Recommendations * Recommend Nepro 45 ml/hr (goal rate) w/ Kelby BID via GT Provides (w/ current D5%W infusion rate): 2634 kcal/day, 112 gm protein/day, and 1453 ml free water/day Meets: 109% of estimated caloric need and 93% of upper end of estimated protein needs * Free Water Flush clarification per physician d/t ARF * Consider prokinetic agent for improved gut motility * Consider Banatrol (banana flakes) BID if loose stools persist
--- NOTE | 2020-12-24 15:51 | NUR ---
Dietitian Recommendations * Recommend Nepro 45 ml/hr (goal rate) via GT Provides (w/ current D5%W infusion rate): 2454 kcal/day, 107 gm protein/day, and 1453 ml free water/day Meets: 102% of estimated caloric need and 89% of upper end of estimated protein needs * Free Water Flush clarification per physician d/t ARF * Consider prokinetic agent for improved gut motility * Consider Banatrol (banana flakes) BID if loose stools persist LP, RD Please refer to Nutrition F/U for details. Addendum: 12/24/20 at [address] CORRECTION: Dietitian Recommendations * Recommend Nepro 45 ml/hr (goal rate) w/ Kelby BID via GT Provides (w/ current D5%W infusion rate): 2634 kcal/day, 112 gm protein/day, and 1453 ml free water/day Meets: 109% of estimated caloric need and 93% of upper end of estimated protein needs * Free Water Flush clarification per physician d/t ARF * Consider prokinetic agent for improved gut motility * Consider Banatrol (banana flakes) BID if loose stools persist
[2020-12-24] MEDS ORDERED: HEPARIN SODIUM,PORCINE 5,000 UNITS/ML VIAL ONE (18:26)
[2020-12-24] MEDS: ALBUTEROL SULFATE 0.083% 2.5 MG/3 ML VIAL.NEB INH PRN (23:35)
[2020-12-25] VITALS (35 sets, daily range): BP systolic 92–136
[2020-12-25] MEDS: PIPERACILLIN/TAZOBACTAM 2.25 GM/ D5W 50 ML IV SCH ×8 (00:29→17:09)
[2020-12-25] MEDS: INSULIN REGULAR, HUMAN 100 UNITS/ML, 10 ML VIAL (humuLIN R) SUBCUT PRN ×4 (00:42→18:07)
[2020-12-25] MEDS: NOREPINEPHRINE BITARTRATE 8 MG in D5W 242 ML IV PRN ×2 (00:56→14:43)
[2020-12-25] MEDS: ACETAMINOPHEN 325 MG TABLET PO PRN ×3 (04:37→20:28)
[2020-12-25] MEDS: D5W 1,000 ML IV SCH ×3 (05:57→20:33)
--- NOTE | 2020-12-25 07:00 | NUR ---
Recv report fr Garcia rn, per Jose patient was spiking fever last night , and started desaturating, he gave the patient cooling measures, tylenol, also patient is on levophed, at 0.12 mcg, i will continue to monitor the patient.
--- NOTE | 2020-12-25 07:38 | NUR ---
RT NOTES FIO2 to 0.60. VANGIE Huber made aware.
[2020-12-25 08:21] LABS: BASOPHILS # (AUTO) 0.1 K/uL (0.0-0.2); BASOPHILS % (AUTO) 0.3 % (0.0-2.0); EOSINOPHILS # (AUTO) 0.5 K/uL (0.0-0.4); EOSINOPHILS % (AUTO) 2.6 % (0.0-4.0); HEMATOCRIT 23.1 % (36-54); HEMOGLOBIN 7.2 g/dL (14.0-18.0); LYMPHOCYTES # (AUTO) 1.8 K/uL (1.0-5.5); LYMPHOCYTES % (AUTO) 8.9 % (20.5-51.5); MEAN CORPUSCULAR HEMOGLOBIN 26 pg (27-31); MEAN CORPUSCULAR HGB CONC 31 % (32-36); MEAN CORPUSCULAR VOLUME 83 fL (79.0-98.0); MONOCYTES # (AUTO) 0.8 K/uL (0.0-1.0); MONOCYTES % (AUTO) 4.1 % (1.7-9.3); NEUTROPHILS # (AUTO) 17.3 K/uL (1.8-7.7); NEUTROPHILS % (AUTO) 84.1 % (40.0-70.0); PLATELET COUNT (AUTO) 154 K/uL (130-430); RED CELL DISTRIBUTION WIDTH 17.2 % (9.0-15.0); WHITE BLOOD COUNT (AUTO) 20.5 K/uL (4.8-10.8)
[2020-12-25 08:28] LABS: CALCIUM 7.5 mg/dL (8.4-11.0); CREATININE 4.03 mg/dL (0.55-1.30); POTASSIUM 3.7 mmol/L (3.5-5.1)
[2020-12-25 08:34] LABS: TOTAL BILIRUBIN 0.5 mg/dL (0.0-1.0)
[2020-12-25] MEDS: BALSAM PERU/CASTOR OIL 60 GM OINT...G. TP SCH (09:00)
[2020-12-25] MEDS: METOPROLOL TARTRATE 50 MG TABLET GT SCH ×2 (09:00→21:34)
--- NOTE | 2020-12-25 11:45 | NUR ---
RT NOTES Per dr's order, vent settings to cpap 5 ps 12. No adverse reactions noted. will monitor pt.
--- NOTE | 2020-12-25 13:25 | NUR ---
RT NOTES Pt back to AC.
--- NOTE | 2020-12-25 13:55 | NUR ---
RT NOTES Transported pt to and from CT with charge nurse katerin and pediatric radiologist jim. Bagged pt w/ 100% O2 via resus bag to trach tube. a/w remains secure/patent. pt back on vent once in the unit.
--- NOTE | 2020-12-25 14:00 | NUR ---
Patient went to ct abdomen ordered by dr marie , patient was stable all morning, patient is going with Levophed at 0.12 mcg..
[2020-12-25] MEDS: FLUCONAZOLE 100 mg/ NS 50 ML IV SCH (14:28)
--- NOTE | 2020-12-25 14:33 | NUR ---
RT NOTES FIO2 TO 0.60 DUE TO LOW SAT. IMPROVED TO 93%
--- NOTE | 2020-12-25 18:00 | NUR ---
Allnurisng care and issues all have been addressed, patient has been given cooling measures, patient has a temp of 103 again. i will endorse care to shift supervisor nurse.
[2020-12-26] VITALS (35 sets, daily range): BP systolic 87–149
[2020-12-26] MEDS: PIPERACILLIN/TAZOBACTAM 2.25 GM/ D5W 50 ML IV SCH ×8 (00:42→18:48)
[2020-12-26] MEDS: INSULIN REGULAR, HUMAN 100 UNITS/ML, 10 ML VIAL (humuLIN R) SUBCUT PRN ×4 (00:57→17:59)
[2020-12-26] MEDS ORDERED: NOREPINEPHRINE 4 MG/4 ML VIAL IV ONE (01:22)
[2020-12-26] MEDS: NOREPINEPHRINE BITARTRATE 8 MG in D5W 242 ML IV PRN (01:35)
[2020-12-26] MEDS: D5W 1,000 ML IV SCH ×2 (06:08→12:31)
--- NOTE | 2020-12-26 07:00 | NUR ---
Recv report fr Jose rose, patient has on and off temperature, cooling measures and tylenol was given, but still patient last temp is 103, patient levophed was able to titrate down to 0.06 mcg. I will continue nursing care and interventions.
--- NOTE | 2020-12-26 07:00 | NUR ---
Recv report fr Jose rose, patient had increased temperature all night, recent temp is 101., Jose rn is able to titrate Levophed down as low as 0.06 mcg , tube feeding held at midnight, d5w is infusing at 125 ml/hr, patient's bs increased hign 200's and 300's , i will notify dr marie regarding the temperature and will continue nursing care and interventions.
--- NOTE | 2020-12-26 07:25 | NUR ---
RT NOTES FIO2 TO 0.50. No adverse reactions noted. Will monitor pt. RN made aware.
--- NOTE | 2020-12-26 07:35 | NUR ---
Patient's temperature increasing fr between 103 to 101, notified Dr. Marie because he scheduled patient for debridement at 10 am, Dr marie states "ok..."
[2020-12-26 08:51] LABS: ALBUMIN 0.9 g/dL (3.4-4.8); CREATININE 5.16 mg/dL (0.55-1.30); TOTAL BILIRUBIN 0.3 mg/dL (0.0-1.0)
[2020-12-26] MEDS: BALSAM PERU/CASTOR OIL 60 GM OINT...G. TP SCH (09:00)
[2020-12-26] MEDS: METOPROLOL TARTRATE 50 MG TABLET GT SCH ×2 (09:00→21:19)
--- NOTE | 2020-12-26 09:00 | NUR ---
O.R. team came and checked the patient, Dr Sahni anesthesiologists came spoke with patient's daughter gave the consent for debridement of the sacrum. i will prepare patient for the procedure.
[2020-12-26 09:29] LABS: CALCIUM 6.4 mg/dL (8.4-11.0)
--- NOTE | 2020-12-26 09:35 | NUR ---
RT NOTES Per RN, hold off on cpap trial, pt is having surgery today.
--- NOTE | 2020-12-26 10:00 | NUR ---
Patient is picked up to go for the debridement procedure.
--- NOTE | 2020-12-26 10:30 | NUR ---
RT NOTES Transported pt to O.R with 2 O.R nurses. Bagged pt w/ 100% O2 via resus bag to trach tube. Anesthesiologist took over bagging once in the unit.
[2020-12-26] MEDS ORDERED: WATER FOR IRRIGATION,STERILE 1,000 ML IRRIG.SOLN IR ONE (10:35)
[2020-12-26] MEDS ORDERED: D5W 1,000 ML IV.SOLN IV ONE (10:35)
[2020-12-26] MEDS ORDERED: BUPIVACAINE /PF 0.5% 30 ML VIAL INJ ONE (10:35)
[2020-12-26] MEDS ORDERED: TAZOBACTAM IV ONE (10:35)
[2020-12-26] MEDS ORDERED: CEFAZOLIN 2 GM IVPB PREMIX 50 ML IV ONE (10:35)
[2020-12-26] MEDS ORDERED: PIPERACILLIN IV ONE (10:35)
[2020-12-26] MEDS ORDERED: DEX IS PIGGYBACK IV ONE (10:35)
[2020-12-26 10:51] LABS: BASOPHILS % (AUTO) 0.2 % (0.0-2.0); EOSINOPHILS # (AUTO) 0.3 K/uL (0.0-0.4); EOSINOPHILS % (AUTO) 2.2 % (0.0-4.0); LYMPHOCYTES # (AUTO) 0.7 K/uL (1.0-5.5); LYMPHOCYTES % (AUTO) 4.3 % (20.5-51.5); MEAN CORPUSCULAR HEMOGLOBIN 26 pg (27-31); MEAN CORPUSCULAR HGB CONC 32 % (32-36); MEAN CORPUSCULAR VOLUME 82 fL (79.0-98.0); MONOCYTES # (AUTO) 0.7 K/uL (0.0-1.0); MONOCYTES % (AUTO) 4.2 % (1.7-9.3); NEUTROPHILS % (AUTO) 89.1 % (40.0-70.0); PLATELET COUNT (AUTO) 135 K/uL (130-430); RED BLOOD CELL COUNT(AUTO) 2.49 MIL/uL (4.2-6.2); RED CELL DISTRIBUTION WIDTH 17.4 % (9.0-15.0); WHITE BLOOD COUNT (AUTO) 15.7 K/uL (4.8-10.8)
[2020-12-26] MEDS ORDERED: HYDROmorphone 2 MG/ML VIAL IVP PRN (11:15)
[2020-12-26] MEDS ORDERED: HYDROcodone/ACETAMIN 5-325 MG TAB (NORCO/ VICODIN) PO PRN (11:15)
[2020-12-26] MEDS ORDERED: MORPHINE 4 MG INJ. 4 MG/ML VIAL IVP PRN (11:15)
--- NOTE | 2020-12-26 11:15 | NUR ---
RT NOTES Transported from O.R. with O.R nurse and anesthesiologist. Placed pt back on vent once in the unit. FIO2 TO 0.60 due to low saturation, charge nurse stephen at bedside aware, pt maybe febrile.
--- NOTE | 2020-12-26 11:18 | NUR ---
Patient came back from the debridement procedure, hooked patient in the monitor noticed that hr is in upper 110s , bp still stable with Levophed at 0.03 mcg, i will closely monitor the patient.
--- NOTE | 2020-12-26 11:22 | NUR ---
Pt return from OR. Situated pt to room. No signs of acute distress noted.
--- NOTE | 2020-12-26 11:27 | NUR ---
Nutrition F/U RD reviewed pt's current EMR record including diet Hx, physician notes, nursing notes, pertinent labs/meds/procedures, care trends, and care activity. Admission Dx: Sepsis PMH: anoxic brain injury, trach, DM, and HTN per physician notes Pt also found w/ septic shock, ARF 2/2 ATN, complicated UTI, HABP, Candiduria, anoxic encephalopathy, and dislodged GT per physician notes SARS-CoV-2 Ag (Rapid) Negative 12/19 Current Diet Order/Nutrition Support: NPO x 1 day (previously on Nepro at 45ml/hr Kelby BID, FWF per physician via GT) Subjective Info: Pt remains in ICU, on vent, and plan for another HD today. Pt is currently NPO, plan for debridement of sacrococcyx decubitus ulcer. Pt was seen in bed, RN at bedside providing care. RN reported that pt has been having febrile episode since this morning and continues to have diarrhea and vomiting. Per EMR, abdomen is soft w/ hypoactive bowel sounds. Trevor scale: 8, pt was seen by strategic planning specialist on 12/20 and noted 1. Sacral-Coccygeal area: Unstageable pressure ulcer, present on admission. 2. Left Buttock near Ischium: Unstageable pressure ulcer, present on admission. 3. Right Achilles: Chronic wound of unknown etiology, present on admission. 4. Right Heel: Chronic wound of unknown etiology, present on admission. 5. Left Lower Extremity: Multiple areas of light brown discoloration, present on admission. 6. Right Lower Extremity: Multiple areas of light brown discoloration, present on admission. 7. Left Ear: Unstageable pressure ulcer, present on admission. 8. Right Ear: Healing pressure ulcer of prior unknown stage, present on admission. Pt w/ 2+ pitting generalized edema per RN notes. EN rate: 30ml (12/25), GRV: 15ml (12/25). Pt may benefit from adding Banatrol to add bulk to his stool. Pertinent Medications: D5%W at 125 ml/hr (510 kcal/day), lopressor, SSI, piperacillin/tazobactam Pertinent Labs: 12/26 Na 129 L, K 4 WNL, BUN 68 H, CRE 5.16 H, BG 345 H, POC BG 342 H Ht: 5'8" Wt: 240#/109 kg (12/21) -- stable Body Mass Index: 36.49 kg/m2 %IBW: 156 [place]/Adjusted Body Weight: IBW: 154#/70 kg. Adj IBW (obesity): 176#/80 kg Recent Weight Change: Unable to verify Weight Status: Obese NEW Estimated Energy Expenditure (kcals/day) Tmax: 39.5'C, Ve: 13.3 2631 kcal/day (PSU 2003b d/t critical illness) Estimated Protein Required (g/day) 96-120 gm/day (1.2-1.5 gm/kg Adj IBW d/t ARF, sepsis, wound, new HD) Estimated Fluid Required (l/day) Per physician d/t ARF Problem/Etiology/Signs/Symptoms Increased nutritional needs related to metabolic demands as evidenced by estimated nutritional requirements for sepsis and wound healing. *ongoing Complicated GI function related to compromised gut integrity as evidenced by elevated GRV and loose stools. *ongoing Altered nutrition-related labs related to endocrine and renal dysfunction as evidenced by abnormal BUN, CRE, BG, and POC BG lab values. *ongoing Expected Outcomes/Goals - Monitor EN tolerance and intakes w/ goal of pt meeting at least 80% of estimated nutritional needs, labs trending WNL, normal GI function, and skin integrity/wt maintenance Dietitian Recommendations * Continue NPO per MD * Recommend: add Banatrol TID. * Recommend resume Nepro 45 ml/hr (goal rate), Kelby BID via GT when medically appropriate. Provides (w/ current D5%W infusion rate): 2454 kcal/day, 92 gm protein/day, and 785 ml free water/day Meets: 93% of estimated caloric need and 90% of lower end of estimated protein needs * Free Water Flush clarification per physician d/t ARF Follow Up High Risk: F/U in 2-3 days
[2020-12-26 11:33] LABS: HEMATOCRIT 20.5 % (36-54); HEMOGLOBIN 6.5 g/dL (14.0-18.0)
--- NOTE | 2020-12-26 11:36 | NUR ---
Dietitian Recommendations * Continue NPO per MD * Recommend: add Banatrol TID. * Recommend resume Nepro 45 ml/hr (goal rate), Kelby BID via GT when medically appropriate. Provides (w/ current D5%W infusion rate): 2454 kcal/day, 92 gm protein/day, and 785 ml free water/day Meets: 93% of estimated caloric need and 90% of lower end of estimated protein needs * Free Water Flush clarification per physician d/t ARF Please see Nutrition F/U note for details. SANDRO FITZGERALD
--- NOTE | 2020-12-26 12:00 | NUR ---
Patient heart rate slowly increasing, given patient the prn Morphine order 4 mg, and will re assess the patient.
--- NOTE | 2020-12-26 13:00 | NUR ---
Dr. Wilson came and saw the patient , he said to d/c the iv fluid, and give 1 unit of prbc with dialysis, Dr. Wilson scheduled the patient for dialysis for today. ....
[2020-12-26] MEDS: FLUCONAZOLE 100 mg/ NS 50 ML IV SCH (13:25)
--- NOTE | 2020-12-26 14:00 | NUR ---
Turned and repositioned the patient.
--- NOTE | 2020-12-26 15:00 | NUR ---
Itzel r d intern came and started the Hemodialysis . patient is to receive 1 unit of blood during hemodialysis., increased Levophed drip to 0.06 mcg due to patient's bs in the 80's. will continue to monitor the patient.
[2020-12-26] MEDS: ACETAMINOPHEN 650 MG/20.3 ML UDC GT PRN (18:28)
--- NOTE | 2020-12-26 19:10 | NUR ---
PT RESTING QUIETLY IN BED AT MY ASSUMPTION OF CARE.REPORT INDICATES PT HAD UNSTAGEABLE,SACRAL WOUND DEBRIDEMENT EARLIER FOLLOWED BY SCHEDULED HEMODIALYSIS.PT NOTED TO BE ON VENTILATOR SUPPORT AT THIS TIME,SETTINGS AC 18,FIO2 65%,TV 500 AND PEEP 5.SATURATION 94% @ THIS TIME.PT NOTED TO TACHYPNEIC RR 38 BPM,TACHYCARDIC HR 125 BPM,TEMPERATURE 103.2 DEG CENTIGRADE ORAL.PT NOTED TO PALE AND DIAPHORETIC WILT PASSIVE COOLING IN PROGRESS.SPOUSE SITTED AT THE BEDSIDE FANNING PT.BLOOD PRESSURE NOTED TO BE 89/52 MMHG.PT NOTED TO BE ON LEVOPHED DRIP @ 0.06 MCG/KG/MIN.WILL REVIEW MEDICAL ORDERS AND CLOSELY FOLLOW.
[2020-12-27] VITALS (36 sets, daily range): BP systolic 97–142
[2020-12-27] MEDS: PIPERACILLIN/TAZOBACTAM 2.25 GM/ D5W 50 ML IV SCH ×8 (00:03→18:04)
[2020-12-27] MEDS: INSULIN REGULAR, HUMAN 100 UNITS/ML, 10 ML VIAL (humuLIN R) SUBCUT PRN ×4 (00:03→18:14)
[2020-12-27] MEDS: NOREPINEPHRINE BITARTRATE 8 MG in D5W 242 ML IV PRN (01:45)
[2020-12-27 06:54] LABS: BASOPHILS # (AUTO) 0.1 K/uL (0.0-0.2); BASOPHILS % (AUTO) 0.7 % (0.0-2.0); EOSINOPHILS # (AUTO) 0.2 K/uL (0.0-0.4); EOSINOPHILS % (AUTO) 2.2 % (0.0-4.0); LYMPHOCYTES # (AUTO) 0.5 K/uL (1.0-5.5); LYMPHOCYTES % (AUTO) 4.7 % (20.5-51.5); MEAN CORPUSCULAR HEMOGLOBIN 27 pg (27-31); MEAN CORPUSCULAR HGB CONC 34 % (32-36); MEAN CORPUSCULAR VOLUME 81 fL (79.0-98.0); MONOCYTES # (AUTO) 0.6 K/uL (0.0-1.0); MONOCYTES % (AUTO) 5.4 % (1.7-9.3); PLATELET COUNT (AUTO) 119 K/uL (130-430); RED BLOOD CELL COUNT(AUTO) 2.51 MIL/uL (4.2-6.2); RED CELL DISTRIBUTION WIDTH 17.2 % (9.0-15.0); WHITE BLOOD COUNT (AUTO) 10.3 K/uL (4.8-10.8)
--- NOTE | 2020-12-27 07:15 | NUR ---
received bedside report from endorsing rn plastics RN for continuation of care, patient is lying on bed , on Levophed @0.03 mcg/kg/min. Trach to Vent AC 18, Tidal volume 500 40% and peep of 5.Tube feeding in place Nepro @ 30 cc/hr.Ni catheter in place, yellow urine in color, flex a seal in place draining to gravity,bed locked at lowest position.fall and safety precaution in place.
--- NOTE | 2020-12-27 08:02 | NUR ---
RT NOTES No fever today, confirmed with RN. Vent to CPAP [address] Murray stated its okay to resume CPAP trials.
[2020-12-27 08:04] LABS: HEMATOCRIT 20.3 % (36-54)
[2020-12-27 08:05] LABS: HEMOGLOBIN 6.8 g/dL (14.0-18.0)
[2020-12-27 08:57] LABS: ALBUMIN 0.7 g/dL (3.4-4.8); CREATININE 4.2 mg/dL (0.55-1.30); POTASSIUM 3.4 mmol/L (3.5-5.1); TOTAL BILIRUBIN 0.4 mg/dL (0.0-1.0)
[2020-12-27] MEDS: METOPROLOL TARTRATE 50 MG TABLET GT SCH ×2 (09:00→20:55)
[2020-12-27] MEDS: BALSAM PERU/CASTOR OIL 60 GM OINT...G. TP SCH (09:26)
[2020-12-27 09:39] LABS: CALCIUM 6.6 mg/dL (8.4-11.0)
[2020-12-27] MEDS: MICAFUNGIN SODIUM 100 MG in NS 100 ML IV SCH (10:42)
--- NOTE | 2020-12-27 11:00 | NUR ---
PATIENT FATHER AND SON IS AT BEDSIDE, VERBAL REPORT GIVEN.
--- NOTE | 2020-12-27 11:20 | NUR ---
RT NOTES Changed trach drain sponge with non-adhesive optifoam which wound care approved to use. A/w remains secure/patent.
--- NOTE | 2020-12-27 11:30 | NUR ---
RT NOTES Vent back to AC due to tachypnea. RN aware.
--- NOTE | 2020-12-27 11:39 | NUR ---
BACK TO AC 18,TIDAL VOLUME 500, FIO2 40% AND PEEP 5, OXYGEN SATURATION 96%
--- NOTE | 2020-12-27 17:15 | NUR ---
CHANGED LINEN, PROVIDED ORAL CARE AND BEDSIDE CARE RENDERED.
--- NOTE | 2020-12-27 19:30 | NUR ---
PT RESTING QUIETLY IN BED AT MY ASSUMPTION OF CARE,EYES CLOSED,NOTED TO BE LETHARGIC AT THIS TIME, AT THE BEDSIDE AT THIS TIME.PT REMAIN ON VENT SUPPORT,SETTINGS AC 18,FIO2 40%,TV 550,PEEP 5 PT HOWEVER NOTED TO BE TACHYPNEIC RR [address],HR 115 BPM, TEMPERATURE 103.1 DEGREES FAHRENHEIT ORAL @ THIS TIME,SKIN HOT TO TOUCH.PT MEDICATED WITH TYLENOL ORDERED,PASSIVE COOLING INITIATED,TEPID COOL BATH GIVEN WITH HELP OF SPOUSE AND ICE PACKS APPLIED PER FEVER CONTROL PROTOCOL.WILL REVIEW MEDICAL ORDERS AND CLOSELY FOLLOW.
--- NOTE | 2020-12-27 19:42 | NUR ---
ENDORSED PATIENT TO COPY COORDINATOR RN FOR CONTINUITY OF CARE
--- NOTE | 2020-12-27 20:20 | NUR ---
PT CONTINUES TO REST QUIETLY IN IN BED,NO RESPIRATORY DISTRESS/DIFFICULTIES NOTED AT THIS TIME,BLOOD TRANSFUSION INITIATED ORDERED,WILL CONTINUE TO CLOSELY MONITOR.
[2020-12-27] MEDS: ACETAMINOPHEN 650 MG/20.3 ML UDC GT PRN ×2 (20:54→23:54)
[2020-12-28] VITALS (29 sets, daily range): BP systolic 116–148
--- NOTE | 2020-12-28 | NUR ---
PT REMAIN MARKEDLY FEBRILE,MIDNIGHT TEMPERATURE 103.2 DEGREE FAHRENHEIT,PT MEDICATED WITH TYLENOL AND PLACED ON A COOLING BLANKET.VITAL SIGNS REMAIN STABLE AT THIS TIME.WILL CONTINUE TO CLOSELY MONITOR.
[2020-12-28] MEDS: INSULIN REGULAR, HUMAN 100 UNITS/ML, 10 ML VIAL (humuLIN R) SUBCUT PRN ×4 (00:03→18:21)
[2020-12-28] MEDS: PIPERACILLIN/TAZOBACTAM 2.25 GM/ D5W 50 ML IV SCH ×10 (00:07→23:58)
[2020-12-28] MEDS: ACETAMINOPHEN 650 MG/20.3 ML UDC GT PRN ×4 (05:41→23:58)
--- NOTE | 2020-12-28 07:15 | NUR ---
RECEIVED REPORT FROM ENDORSING CLASS A REGIONAL DRIVERS RN FOR CONTINUITY OF CARE. PATIENT LYING IN BED WITH D5@3,TRACH TO VENT FORTEX 7 18, TIDAL VOLUME 500, FIO2 40% AND PEEP OF 5, GT TUBE NEPRO 1.8 @ [address], CANNON CATHETER IN PLACE DRAINING TO GRAVITY.RECTAL THERMOMETER IN PLACE 101.3.BED LOCKED AT LOWEST POSITION. FALL AND SAFETY PRECAUTION IN PLACE.
[2020-12-28] MEDS: METOPROLOL TARTRATE 50 MG TABLET GT SCH ×2 (09:00→22:05)
[2020-12-28 09:56] LABS: BASOPHILS # (AUTO) 0.1 K/uL (0.0-0.2); BASOPHILS % (AUTO) 1.4 % (0.0-2.0); EOSINOPHILS # (AUTO) 0.2 K/uL (0.0-0.4); EOSINOPHILS % (AUTO) 1.9 % (0.0-4.0); HEMOGLOBIN 7.7 g/dL (14.0-18.0); LYMPHOCYTES # (AUTO) 1.3 K/uL (1.0-5.5); LYMPHOCYTES % (AUTO) 12.8 % (20.5-51.5); MEAN CORPUSCULAR HEMOGLOBIN 27 pg (27-31); MEAN CORPUSCULAR HGB CONC 34 % (32-36); MEAN CORPUSCULAR VOLUME 82 fL (79.0-98.0); MONOCYTES # (AUTO) 1.1 K/uL (0.0-1.0); MONOCYTES % (AUTO) 10.8 % (1.7-9.3); NEUTROPHILS # (AUTO) 7.2 K/uL (1.8-7.7); NEUTROPHILS % (AUTO) 73.1 % (40.0-70.0); PLATELET COUNT (AUTO) 129 K/uL (130-430); RED BLOOD CELL COUNT(AUTO) 2.81 MIL/uL (4.2-6.2); RED CELL DISTRIBUTION WIDTH 16.6 % (9.0-15.0); WHITE BLOOD COUNT (AUTO) 9.9 K/uL (4.8-10.8)
[2020-12-28 10:06] LABS: CREATININE 5.86 mg/dL (0.55-1.30); POTASSIUM 3.6 mmol/L (3.5-5.1)
[2020-12-28 10:11] LABS: TOTAL BILIRUBIN 0.4 mg/dL (0.0-1.0)
[2020-12-28 10:16] LABS: CALCIUM 6.4 mg/dL (8.4-11.0)
[2020-12-28] MEDS: BALSAM PERU/CASTOR OIL 60 GM OINT...G. TP SCH (11:23)
[2020-12-28] MEDS: MICAFUNGIN SODIUM 100 MG in NS 100 ML IV SCH (11:24)
[2020-12-28] MEDS ORDERED: HEPARIN SODIUM, PORCINE 10,000 UNITS/ 10 ML VIAL MC ONE (12:45)
[2020-12-28] MEDS ORDERED: HEPARIN SODIUM,PORCINE 5,000 UNITS/ML VIAL ONE (13:10)
[2020-12-28] MEDS ORDERED: HEPARIN SODIUM,PORCINE 5,000 UNITS/ML VIAL IV ONE (13:15)
--- NOTE | 2020-12-28 16:30 | NUR ---
1540 PT PLACED BACK TO AC. CPAP TRIAL DONE. Addendum: 12/28/20 at 1631 by Ethel Caputo RT Amended: Links added.
[2020-12-29] VITALS (37 sets, daily range): BP systolic 117–149
[2020-12-29] MEDS: INSULIN REGULAR, HUMAN 100 UNITS/ML, 10 ML VIAL (humuLIN R) SUBCUT PRN ×4 (00:18→17:50)
[2020-12-29] MEDS: PIPERACILLIN/TAZOBACTAM 2.25 GM/ D5W 50 ML IV SCH ×6 (06:14→17:38)
--- NOTE | 2020-12-29 07:15 | NUR ---
RECEIVED REPORT FROM ENDORSING VISUAL ARTIST RN FOR CONTINUITY OF CARE, PATIENT LYING ON BED WITH AN IVF OF NS @ 3CC/HR. ON TUBE FEEDING NEPRO @ 40 MLS/HR, CANNON CATHETER IN PLACE DRAINING TO GRAVITY, FLEX A SEAL IN PLACE , RECTAL THERMOMETER IN PLACE T 101.4.BED LOCKED AT LOWEST POSITION, FALL AND SAFETY PRECAUTION IN PLACE.
[2020-12-29] MEDS: METOPROLOL TARTRATE 50 MG TABLET GT SCH ×2 (08:11→21:53)
[2020-12-29] MEDS: BALSAM PERU/CASTOR OIL 60 GM OINT...G. TP SCH (08:17)
--- NOTE | 2020-12-29 09:12 | NUR ---
PT ON CPAP5, PS 12, FIO2 30% CHANGED BY MD SANDOVAL.
--- NOTE | 2020-12-29 09:12 | NUR ---
STARTED CPAP TRIAL
[2020-12-29] MEDS ORDERED: EPOETIN ALFA 10,000 UNITS/ML VIAL SUBCUT ONE (09:30)
[2020-12-29] MEDS ORDERED: SOD FERRIC GLUC COMPLEX/SUC 125 MG in NS 100 ML IV ONE (10:00)
--- NOTE | 2020-12-29 10:35 | NUR ---
PATIENT FATHER IS AT BEDSIDE, VERBAL REPORT GIVEN
[2020-12-29] MEDS: MICAFUNGIN SODIUM 100 MG in NS 100 ML IV SCH (11:36)
--- NOTE | 2020-12-29 13:30 | NUR ---
PLACED BACK TO AC 18 DUE TO PT DESAT AND TACHYPNEIC.
--- NOTE | 2020-12-29 13:30 | NUR ---
PATIENT BACK TO AC 18, TIDAL VOLUME 500, FIO2 40% AND PEEP OF 5
--- NOTE | 2020-12-29 15:07 | NUR ---
Nutrition F/U RD reviewed pt's current EMR record including diet Hx, physician notes, nursing notes, pertinent labs/meds/procedures, care trends, and care activity. Admission Dx: Sepsis PMH: anoxic brain injury, trach, DM, and HTN per physician notes Pt also found w/ septic shock, ARF 2/2 ATN, complicated UTI, HABP, Candiduria, anoxic encephalopathy, and dislodged GT per physician notes SARS-CoV-2 Ag (Rapid) Negative 12/19 Current Diet Order/Nutrition Support: NPO x 4 days Subjective Info: Pt remains in ICU, intubated, on vent (Vent: 14.9). Pt was seen in bed, RN at bedside providing care. Nepro was infusing at 40ml/hr, GRV:100 per reported RN. RN reported that pt does not have diarrhea or vomiting. RN mentioned that pt was tolerating very well yesterday. Per EMR, abdomen is soft w/ hypoactive bowel sounds. Trevor scale: 8, pt was seen by emr specialist on 12/20 and noted 1. Sacral-Coccygeal area: Unstageable pressure ulcer, present on admission. 2. Left Buttock near Ischium: Unstageable pressure ulcer, present on admission. 3. Right Achilles: Chronic wound of unknown etiology, present on admission. 4. Right Heel: Chronic wound of unknown etiology, present on admission. 5. Left Lower Extremity: Multiple areas of light brown discoloration, present on admission. 6. Right Lower Extremity: Multiple areas of light brown discoloration, present on admission. 7. Left Ear: Unstageable pressure ulcer, present on admission. 8. Right Ear: Healing pressure ulcer of prior unknown stage, present on admission. Pt w/ 2+ pitting generalized edema per RN notes. Pertinent Medications: lopressor, SSI, piperacillin/tazobactam Pertinent Labs: Na 131L, K 3.6WNL, BUN 62H, CRE 5.86H, BG 241H, POC BG 247H Ht: 5'8" Wt: 240#/109 kg (12/21) -- stable Body Mass Index: 36.49 kg/m2 %IBW: 156 [place]/Adjusted Body Weight: IBW: 154#/70 kg. Adj IBW (obesity): 176#/80 kg NEW Estimated Energy Expenditure (kcals/day) Tmax: 39.7'C, Ve: 14.9 2714 kcal/day (PSU 2003b d/t critical illness) Estimated Protein Required (g/day) 96-120 gm/day (1.2-1.5 gm/kg Adj IBW d/t ARF, sepsis, wound) Estimated Fluid Required (l/day) Per physician d/t ARF Problem/Etiology/Signs/Symptoms Increased nutritional needs related to metabolic demands as evidenced by estimated nutritional requirements for sepsis and wound healing. *ongoing Complicated GI function related to compromised gut integrity as evidenced by elevated GRV *ongoing Altered nutrition-related labs related to endocrine and renal dysfunction as evidenced by abnormal BUN, CRE, BG, and POC BG lab values. *ongoing Expected Outcomes/Goals - Monitor EN tolerance and intakes w/ goal of pt meeting at least 80% of estimated nutritional needs, labs trending WNL, normal GI function, and skin integrity/wt maintenance Dietitian Recommendations * Recommend Nepro 50 ml/hr (goal rate) via GT. Provides: 2160 kcal/day, 97 gm protein/day, and 872 ml free water/day Meets: 80% of estimated caloric need and 81% of upper end of estimated protein needs * Free Water Flush clarification per physician d/t ARF Follow Up High Risk: F/U in 2-3 days
--- NOTE | 2020-12-29 15:07 | NUR ---
Dietitian Recommendations * Recommend Nepro 50 ml/hr (goal rate) via GT. Provides: 2160 kcal/day, 97 gm protein/day, and 872 ml free water/day Meets: 80% of estimated caloric need and 81% of upper end of estimated protein needs * Free Water Flush clarification per physician d/t ARF LP, RD Please refer to Nutrition F/U for details.
--- NOTE | 2020-12-29 15:23 | NUR ---
PROVIDED ORAL CARE, CHANGED LINEN , BED SIDE CARE RENDERED.
[2020-12-29] MEDS ORDERED: *CUBICIN 4 MG/KG Q48H/PHARMACY XX PRN (18:00)
[2020-12-29] MEDS ORDERED: DAPTOmycin 500 MG in NS 50 ML IV SCH (19:00)
--- NOTE | 2020-12-29 19:54 | NUR ---
ENDORSED PATIENT TO ENTERPRISE APPLICATIONS MANAGER RN FOR CONTINUITY OF CARE
--- NOTE | 2020-12-29 20:56 | NUR ---
DR LAWRENCE De Leon notified regarding Cubicin not available tonight, but will be available in AM. He okayed starting Cubicin in AM then Q 48H.
[2020-12-29] MEDS: ACETAMINOPHEN 650 MG/20.3 ML UDC GT PRN (21:52)
[2020-12-30] VITALS (34 sets, daily range): BP systolic 102–131
[2020-12-30] MEDS: PIPERACILLIN/TAZOBACTAM 2.25 GM/ D5W 50 ML IV SCH ×10 (00:04→23:54)
[2020-12-30] MEDS: INSULIN REGULAR, HUMAN 100 UNITS/ML, 10 ML VIAL (humuLIN R) SUBCUT PRN ×3 (00:18→23:56)
--- NOTE | 2020-12-30 07:45 | NUR ---
RT NOTES Unable to do cpap trial due to fever.
[2020-12-30 08:35] LABS: BASOPHILS # (AUTO) 0.1 K/uL (0.0-0.2); BASOPHILS % (AUTO) 0.6 % (0.0-2.0); EOSINOPHILS # (AUTO) 0.2 K/uL (0.0-0.4); HEMATOCRIT 24.9 % (36-54); HEMOGLOBIN 8.1 g/dL (14.0-18.0); LYMPHOCYTES # (AUTO) 1.8 K/uL (1.0-5.5); LYMPHOCYTES % (AUTO) 14.7 % (20.5-51.5); MEAN CORPUSCULAR HEMOGLOBIN 27 pg (27-31); MEAN CORPUSCULAR HGB CONC 33 % (32-36); MEAN CORPUSCULAR VOLUME 82 fL (79.0-98.0); MONOCYTES # (AUTO) 1.3 K/uL (0.0-1.0); NEUTROPHILS # (AUTO) 8.7 K/uL (1.8-7.7); NEUTROPHILS % (AUTO) 71.7 % (40.0-70.0); PLATELET COUNT (AUTO) 200 K/uL (130-430); RED BLOOD CELL COUNT(AUTO) 3.04 MIL/uL (4.2-6.2); RED CELL DISTRIBUTION WIDTH 16.9 % (9.0-15.0); WHITE BLOOD COUNT (AUTO) 12.1 K/uL (4.8-10.8)
[2020-12-30 08:48] LABS: ALBUMIN 1.1 g/dL (3.4-4.8); CREATININE 5.77 mg/dL (0.55-1.30); POTASSIUM 4.3 mmol/L (3.5-5.1); TOTAL BILIRUBIN 0.2 mg/dL (0.0-1.0)
[2020-12-30] MEDS: ACETAMINOPHEN 650 MG/20.3 ML UDC GT PRN ×3 (08:51→21:59)
[2020-12-30] MEDS: METOPROLOL TARTRATE 50 MG TABLET GT SCH ×2 (08:51→22:00)
[2020-12-30] MEDS: BALSAM PERU/CASTOR OIL 60 GM OINT...G. TP SCH (10:05)
[2020-12-30] MEDS: MICAFUNGIN SODIUM 100 MG in NS 100 ML IV SCH (10:05)
[2020-12-30] MEDS ORDERED: HEPARIN SODIUM,PORCINE 5,000 UNITS/ML VIAL ONE (14:41)
[2020-12-30] MEDS: NS IV SCH (14:48)
[2020-12-30] MEDS: DAPTOMYCIN IV SCH (14:48)
--- NOTE | 2020-12-30 20:00 | NUR ---
ASSESSMENT Pt with eyes open, does not track. Trach to vent. Pt tolerating current vent settings. Cooling blanket in use for rectal temp greater than 102. Flexiseal and shane in use. Right upper arm with PICC. No redness or swelling noted @ site. Gastric tube feeding on hold due to high residuals.
--- NOTE | 2020-12-30 21:25 | NUR ---
PM SHIFT ASSESSMENT Patient is awake but unable to make needs known. SPO2 via trach to vent, tolerating current vent settings. VSS. Safety precautions in place, call light within reach. Will continue to monitor.
--- NOTE | 2020-12-30 22:25 | NUR ---
CAREGIVER Imelda VENCES will assume care after this time.
[2020-12-31] VITALS (34 sets, daily range): BP systolic 91–121
[2020-12-31] MEDS: PIPERACILLIN/TAZOBACTAM 2.25 GM/ D5W 50 ML IV SCH ×8 (05:48→23:44)
[2020-12-31] MEDS: INSULIN REGULAR, HUMAN 100 UNITS/ML, 10 ML VIAL (humuLIN R) SUBCUT PRN ×3 (05:50→18:05)
[2020-12-31] MEDS: METOPROLOL TARTRATE 50 MG TABLET GT SCH ×2 (08:25→20:54)
[2020-12-31] MEDS: BALSAM PERU/CASTOR OIL 60 GM OINT...G. TP SCH (08:26)
[2020-12-31] MEDS: ACETAMINOPHEN 650 MG/20.3 ML UDC GT PRN (09:00)
[2020-12-31 09:16] LABS: BASOPHILS # (AUTO) 0.1 K/uL (0.0-0.2); BASOPHILS % (AUTO) 0.7 % (0.0-2.0); EOSINOPHILS # (AUTO) 0.2 K/uL (0.0-0.4); EOSINOPHILS % (AUTO) 1.4 % (0.0-4.0); HEMATOCRIT 26.4 % (36-54); HEMOGLOBIN 8.7 g/dL (14.0-18.0); LYMPHOCYTES # (AUTO) 2.4 K/uL (1.0-5.5); LYMPHOCYTES % (AUTO) 16.2 % (20.5-51.5); MEAN CORPUSCULAR HEMOGLOBIN 27 pg (27-31); MEAN CORPUSCULAR HGB CONC 33 % (32-36); MEAN CORPUSCULAR VOLUME 83 fL (79.0-98.0); MONOCYTES # (AUTO) 1.7 K/uL (0.0-1.0); MONOCYTES % (AUTO) 11.1 % (1.7-9.3); NEUTROPHILS # (AUTO) 10.5 K/uL (1.8-7.7); NEUTROPHILS % (AUTO) 70.6 % (40.0-70.0); PLATELET COUNT (AUTO) 270 K/uL (130-430); RED BLOOD CELL COUNT(AUTO) 3.19 MIL/uL (4.2-6.2); RED CELL DISTRIBUTION WIDTH 17.2 % (9.0-15.0)
--- NOTE | 2020-12-31 09:48 | NUR ---
RT NOTES Dr Murray is aware of no CPAP trials yesterday and today due to fever.
[2020-12-31 10:16] LABS: CALCIUM 7.5 mg/dL (8.4-11.0); CREATININE 4.57 mg/dL (0.55-1.30); PHOSPHORUS 5.3 mg/dL (2.7-4.5); POTASSIUM 4.1 mmol/L (3.5-5.1)
[2020-12-31] MEDS: MICAFUNGIN SODIUM 100 MG in NS 100 ML IV SCH (11:26)
[2020-12-31 13:08] LABS: WHITE BLOOD COUNT (AUTO) 14.9 K/uL (4.8-10.8)
--- NOTE | 2020-12-31 13:08 | NUR ---
CM: Updated and faxed clinicals to [facility].
[2020-12-31 15:02] LABS: ERYTHROCYTE SEDIMENTATION RATE 116 MM/HR (0-15)
[2021-01-01] VITALS (20 sets, daily range): BP systolic 101–116
[2021-01-01] MEDS: INSULIN REGULAR, HUMAN 100 UNITS/ML, 10 ML VIAL (humuLIN R) SUBCUT PRN ×3 (00:13→20:40)
[2021-01-01] MEDS: PIPERACILLIN/TAZOBACTAM 2.25 GM/ D5W 50 ML IV SCH ×8 (05:55→23:52)
[2021-01-01 06:28] LABS: BASOPHILS # (AUTO) 0.1 K/uL (0.0-0.2); BASOPHILS % (AUTO) 0.7 % (0.0-2.0); EOSINOPHILS # (AUTO) 0.2 K/uL (0.0-0.4); EOSINOPHILS % (AUTO) 1.6 % (0.0-4.0); HEMATOCRIT 22.6 % (36-54); HEMOGLOBIN 7.5 g/dL (14.0-18.0); LYMPHOCYTES # (AUTO) 2.5 K/uL (1.0-5.5); LYMPHOCYTES % (AUTO) 16.6 % (20.5-51.5); MEAN CORPUSCULAR HEMOGLOBIN 27 pg (27-31); MEAN CORPUSCULAR HGB CONC 33 % (32-36); MEAN CORPUSCULAR VOLUME 83 fL (79.0-98.0); MONOCYTES # (AUTO) 1.3 K/uL (0.0-1.0); MONOCYTES % (AUTO) 8.6 % (1.7-9.3); NEUTROPHILS # (AUTO) 10.8 K/uL (1.8-7.7); NEUTROPHILS % (AUTO) 72.5 % (40.0-70.0); PLATELET COUNT (AUTO) 282 K/uL (130-430); RED BLOOD CELL COUNT(AUTO) 2.73 MIL/uL (4.2-6.2); RED CELL DISTRIBUTION WIDTH 17.5 % (9.0-15.0); WHITE BLOOD COUNT (AUTO) 14.9 K/uL (4.8-10.8)
[2021-01-01 06:55] LABS: ALBUMIN 1.2 g/dL (3.4-4.8); CREATININE 5.81 mg/dL (0.55-1.30); PHOSPHORUS 6.8 mg/dL (2.7-4.5); POTASSIUM 4.2 mmol/L (3.5-5.1); TOTAL BILIRUBIN 0.3 mg/dL (0.0-1.0)
--- NOTE | 2021-01-01 07:00 | NUR ---
Recv report fr roper rn, patient is in bed trach to vent, normal sinus rhythm, g tube feeding nepro at 35 ml/hr, fc to gravity, oliguric, hemodialysis patient skin is pale , hot to touch, stage 4 in the coccys, pulses palpable, i will continue nurisng care and interventions.
--- NOTE | 2021-01-01 07:45 | NUR ---
Lilly mauricio, placed ventilator on cpap mode, i will closely monitor patient's breathing.
[2021-01-01] MEDS: METOPROLOL TARTRATE 50 MG TABLET GT SCH ×2 (09:05→20:32)
[2021-01-01] MEDS: DAPTOMYCIN IV SCH (09:06)
[2021-01-01] MEDS: NS IV SCH (09:06)
[2021-01-01] MEDS: BALSAM PERU/CASTOR OIL 60 GM OINT...G. TP SCH (09:07)
[2021-01-01 09:10] LABS: CALCIUM 6.9 mg/dL (8.4-11.0)
--- NOTE | 2021-01-01 10:00 | NUR ---
Patient still doing well with current cpap settings fr ventilator, turned and repositioned the patient, given all a.m. meds, .
[2021-01-01 11:45] LABS: ERYTHROCYTE SEDIMENTATION RATE > 140 MM/HR (0-15)
--- NOTE | 2021-01-01 12:00 | NUR ---
12 pm re assessment, patient remains stabble, oral care performed, vitalsi sign within limits, vent settings remains on cpap o2 sat 95%, blood sugar 204 will give 4 units of reg insulin sliding scale, i will continue current nursing interventions.
[2021-01-01] MEDS: MICAFUNGIN SODIUM 100 MG in NS 100 ML IV SCH (12:57)
--- NOTE | 2021-01-01 13:04 | NUR ---
Nutrition F/U RD reviewed pt's current EMR record including diet Hx, physician notes, nursing notes, pertinent labs/meds/procedures, care trends, and care activity. Admission Dx: Sepsis PMH: anoxic brain injury, trach, DM, and HTN per physician notes Pt also found w/ septic shock, ARF 2/2 ATN, complicated UTI, HABP, Candiduria, anoxic encephalopathy, and dislodged GT per physician notes 01/01 MD notes: Acute on Chronic renal failure, S/P RIJ HD cath placement 12/23. 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 SARS-CoV-2 Ag (Rapid) Negative 12/19 Current Diet Order/Nutrition Support: Nepro at 50ml/hr (goal rate) via GT, FWF per physician Subjective Info: Pt remains in ICU, continues to receive HD per Nephrology and is S/P debridement on 12/26. Per EMR review, abdomen is soft w/ hyperactive bowel sounds, stool output of 700ml 01/01, Trevor scale: 11, pt appeared w/ pale skin color, analysis specialist note on 12/20 reviewed and noted pt w/ multiple pressure ulcers and RN noted pt w/ 1+ pitting generalized edema. Pt is pending hospice consult. EN rate: 35ml (01/01), GRV: 0ml (01/01). Current EN infusion rate of 35ml is not adequate and meets <70% of estimated needs. Increasing EN infusion rate is warranted to better meet estimated nutrient needs. RD s/w pt's RN in ICU, and discussed need to increase EN rate to goal. RN to execute plan. Pt w/ PU's and Kelby is warranted. Pertinent Medications: lopressor, SSI, piperacillin/tazobactam Pertinent Labs: 01/01 WBC 14.9H, Na 136 WNL, K 4.2WNL, BUN 64H, CRE 5.81H, BG 168H, POC BG 204H, Phos 6.8H, Mg 2.5H Ht: 5'8" Wt: 240#/109 kg (12/21) -- stable Body Mass Index: 36.49 kg/m2 %IBW: 156 [place]/Adjusted Body Weight: IBW: 154#/70 kg. Adj IBW (obesity): 176#/80 kg Estimated Energy Expenditure (kcals/day) Tmax: 39.7'C, Ve: 14.9 2714 kcal/day (PSU d/t critical illness) Estimated Protein Required (g/day) 96-120 gm/day (1.2-1.5 gm/kg Adj IBW d/t ARF, sepsis, wound) Estimated Fluid Required (l/day) Per physician d/t ARF Problem/Etiology/Signs/Symptoms Increased nutritional needs related to metabolic demands as evidenced by estimated nutritional requirements for sepsis and wound healing. *ongoing Complicated GI function related to compromised gut integrity as evidenced by elevated GRV *ongoing Altered nutrition-related labs related to endocrine and renal dysfunction as evidenced by abnormal BUN, CRE, BG, and POC BG lab values. *ongoing Expected Outcomes/Goals - Monitor EN tolerance and intakes w/ goal of pt meeting at least 80% of estimated nutritional needs, labs trending WNL, normal GI function, and skin integrity/wt maintenance Dietitian Recommendations * Recommend: add Kelby BID for wound healing. Increase EN rate to goal to meet estimated nutrient needs. * Recommend: Nepro 50 ml/hr (goal rate) via GT. Provides: 2320 kcal/day, 102 gm protein/day, and 872 ml free water/day Meets: 85% of estimated caloric need and 85% of upper end of estimated protein needs * Free Water Flush clarification per physician d/t ARF Follow Up High Risk: F/U in 2-3 days
--- NOTE | 2021-01-01 13:11 | NUR ---
Dietitian Recommendations * Recommend: add Kelby BID for wound healing. Increase EN rate to goal to meet estimated nutrient needs. * Recommend: Nepro 50 ml/hr (goal rate) via GT. Provides: 2320 kcal/day, 102 gm protein/day, and 872 ml free water/day Meets: 85% of estimated caloric need and 85% of upper end of estimated protein needs * Free Water Flush clarification per physician d/t ARF. Please see Nutrition F/U note for details. AMILCAR, RD
[2021-01-01 14:12] LABS: C-REACTIVE PROTEIN QUANT 12.9 mg/dL (0-0.5)
--- NOTE | 2021-01-01 19:30 | NUR ---
Opening note Received report from day shift. Pt is quietly resting in bed. No s/s of respiratory distress. Breathing is even and unlabored. Ni and rectal tubes are intact and draining. Tube feeding is running at ordered rate, tolerating well. Fall and safety precautions in place with bed in lowest position, bed alarm on, and call light within reach.
[2021-01-02] VITALS: BP_SYST 111
[2021-01-02] MEDS: INSULIN REGULAR, HUMAN 100 UNITS/ML, 10 ML VIAL (humuLIN R) SUBCUT PRN ×5 (00:03→23:24)
--- NOTE | 2021-01-02 00:15 | NUR ---
Rounds Pt resting in bed, eyes closed. No s/s of respiratory distress. Breathing even and unlabored. Fall and safety checks in place
[2021-01-02] MEDS: PIPERACILLIN/TAZOBACTAM 2.25 GM/ D5W 50 ML IV SCH ×8 (06:00→23:11)
--- NOTE | 2021-01-02 06:44 | NUR ---
Closing note Pt is quietly resting in bed. No s/s of respiratory distress. Breathing is even and unlabored. Ni and rectal tubes are intact and draining. Tube feeding is running at ordered rate, tolerating well. All needs met throughout shift. Fall and safety precautions in place with bed in lowest position, bed alarm on, and call light within reach.
[2021-01-02 08:00] VITALS: BP_SYST 114
--- NOTE | 2021-01-02 08:00 | NUR ---
Morning Rounds: Pt resting in bed, HOB at 30 degrees. Vent on AC mode, FiO2 40, Vt 500, PEEP 5, RR 18, tolerating well, no s/s of respiratory distress. Tube feeding at 50mL/h, tolerating well. Ni draining to gravity, Flexiseal in place, draining to gravity. Fall/aspiration/isolation precautions in place. Call light within reach, will continue to monitor.
[2021-01-02] MEDS: METOPROLOL TARTRATE 50 MG TABLET GT SCH ×2 (08:20→20:45)
[2021-01-02 11:33] VITALS: BP_SYST 131
--- NOTE | 2021-01-02 14:02 | NUR ---
HIGH ALERT NOTE: Called Dr. BORGES back at [phone] identified within the medical roster to verify physician authenticity.
--- NOTE | 2021-01-02 14:05 | NUR ---
Delayed antibiotic patient is undergoing hemodialysis at this time, per HD nurse unable to infuse 1100 Mycamine - will infuse post HD.
[2021-01-02] MEDS ORDERED: HEPARIN SODIUM,PORCINE 5,000 UNITS/ML VIAL MC ONE (14:15)
--- NOTE | 2021-01-02 15:26 | NUR ---
Heparin scanned for HD nurse to instill in HD ports.
[2021-01-02 15:52] VITALS: BP_SYST 118
[2021-01-02] MEDS: BALSAM PERU/CASTOR OIL 60 GM OINT...G. TP SCH (16:07)
[2021-01-02] MEDS: MICAFUNGIN SODIUM 100 MG in NS 100 ML IV SCH (16:08)
--- NOTE | 2021-01-02 18:32 | NUR ---
Evening Rounds: Pt resting in bed, HOB at 30 degrees. Vent on AC mode, FiO2 40, Vt 500, PEEP 5, RR 18, tolerating well, no s/s of respiratory distress. Tube feeding at 50mL/h, tolerating well. Ni draining to gravity, Flexiseal in place, draining to gravity. Fall/aspiration/isolation precautions in place. Call light within reach, family at bedside.
--- NOTE | 2021-01-02 19:30 | NUR ---
Opening note Received report from day shift. Pt is quietly resting in bed, eyes closed. No s/s of respiratory distress. Breathing is even and unlabored. Ni and rectal tubes are intact and draining. Tube feeding is running at ordered rate, tolerating well. Fall and safety precautions in place with bed in lowest position, bed alarm on, and call light within reach.
--- NOTE | 2021-01-03 00:15 | NUR ---
Rounds Pt resting in bed, eyes closed. No s/s of respiratory distress. Breathing even and unlabored. Fall and safety checks in place
[2021-01-03 00:21] VITALS: BP_SYST 123
[2021-01-03] MEDS: PIPERACILLIN/TAZOBACTAM 2.25 GM/ D5W 50 ML IV SCH ×4 (06:29→11:20)
[2021-01-03] MEDS: INSULIN REGULAR, HUMAN 100 UNITS/ML, 10 ML VIAL (humuLIN R) SUBCUT PRN ×2 (06:37→11:21)
[2021-01-03 06:51] LABS: BASOPHILS # (AUTO) 0.1 K/uL (0.0-0.2); BASOPHILS % (AUTO) 0.9 % (0.0-2.0); EOSINOPHILS # (AUTO) 0.3 K/uL (0.0-0.4); EOSINOPHILS % (AUTO) 1.7 % (0.0-4.0); HEMATOCRIT 24.1 % (36-54); HEMOGLOBIN 7.9 g/dL (14.0-18.0); LYMPHOCYTES # (AUTO) 2.3 K/uL (1.0-5.5); LYMPHOCYTES % (AUTO) 13.8 % (20.5-51.5); MEAN CORPUSCULAR HEMOGLOBIN 27 pg (27-31); MEAN CORPUSCULAR HGB CONC 33 % (32-36); MEAN CORPUSCULAR VOLUME 83 fL (79.0-98.0); MONOCYTES # (AUTO) 1.5 K/uL (0.0-1.0); MONOCYTES % (AUTO) 9.1 % (1.7-9.3); NEUTROPHILS # (AUTO) 12.4 K/uL (1.8-7.7); NEUTROPHILS % (AUTO) 74.5 % (40.0-70.0); PLATELET COUNT (AUTO) 352 K/uL (130-430); RED BLOOD CELL COUNT(AUTO) 2.91 MIL/uL (4.2-6.2); RED CELL DISTRIBUTION WIDTH 17.5 % (9.0-15.0); WHITE BLOOD COUNT (AUTO) 16.6 K/uL (4.8-10.8)
[2021-01-03 07:35] LABS: ALBUMIN 1.5 g/dL (3.4-4.8); CALCIUM 7.8 mg/dL (8.4-11.0); CREATININE 5.12 mg/dL (0.55-1.30); POTASSIUM 3.8 mmol/L (3.5-5.1); TOTAL BILIRUBIN 0.4 mg/dL (0.0-1.0)
--- NOTE | 2021-01-03 07:40 | NUR ---
OPENING NOTE Received report from night nurse. Patient is alert and oriented x0, nonverbal. On ventilator settings: AC 18, FIO2 40%, TV 500, PEEP 5.0. PICC line in right upper arm, saline locked. G tube feedings at 50 ml/hr. Ni catheter and Flexiseal in place. Right IJ Sekou noted. Bed locked and in lowest position. Call light within reach. Bed alarm on. Contact, safety, and aspiration precautions in place. Will continue to monitor.
[2021-01-03 08:00] VITALS: BP_SYST 124
[2021-01-03] MEDS: METOPROLOL TARTRATE 50 MG TABLET GT SCH ×2 (08:57→21:00)
[2021-01-03] MEDS: DAPTOMYCIN IV SCH (08:58)
[2021-01-03] MEDS: BALSAM PERU/CASTOR OIL 60 GM OINT...G. TP SCH (08:58)
[2021-01-03] MEDS: NS IV SCH (08:58)
--- NOTE | 2021-01-03 09:25 | NUR ---
PLACED ON CPAP 5, PS 10 PER MD SANDOVAL ORDER. SPO2 97%, HR 95, SPONTANEOUS RR 35, AND VT 356ML. VANGIE PARK NOTIFIED.
[2021-01-03] MEDS: MICAFUNGIN SODIUM 100 MG in NS 100 ML IV SCH (10:34)
[2021-01-03 11:25] VITALS: BP_SYST 127
--- NOTE | 2021-01-03 12:55 | NUR ---
Nutrition F/U RD reviewed pt's current EMR record including diet Hx, physician notes, nursing notes, pertinent labs/meds/procedures, care trends, and care activity. Admission Dx: Sepsis PMH: anoxic brain injury, trach, DM, and HTN per physician notes Pt also found w/ septic shock, ARF 2/2 ATN, complicated UTI, HABP, Candiduria, anoxic encephalopathy, and dislodged GT per physician notes 01/01 MD notes: Acute on Chronic renal failure, S/P RIJ HD cath placement 12/23. 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 SARS-CoV-2 Ag (Rapid) Negative 12/19 Current Diet Order/Nutrition Support: Nepro at 50ml/hr (goal rate) via GT, FWF per physician, Kelby 1 pkt BID x 2days Subjective Info: Pt was transferred out of ICU to telemetry unit, continues to receive HD per Nephrology. RD visited pt and observed father at bedside, tube feeding is running at ordered rate, tolerating well with residual noted of 20ml. Per EMR review, abdomen is soft w/ hyperactive bowel sounds, Bm x 1 yesterday. Pt is unresponsive, jaylan scale of 13, skin with sacrum wound, right buttocks skin tear, dry scab on left ear, and lateral finger. Current TF and supplement providing 2320 kcal/day, 102 gm protein/day, and 872 ml free water/day and meeting 85% of estimated caloric need and 85% of upper end of estimated protein needs. Pertinent Medications: lopressor, SSI, pain meds. Pertinent Labs: 01/03 WBC 16.6H, Na 135L, K: 3.8WNL, BUN 50H, CRE 5.12H, BG 196H, POC BG 202H, Ca: 7.8L, AST: 47H Alk phos: 184H Alb: 1.5L Ht: 5'8" Wt: 240#/109 kg (12/21) -- stable Body Mass Index: 36.5 kg/m2 %IBW: 156 [place]/Adjusted Body Weight: IBW: 154#/70 kg. Adj IBW (obesity): 176#/80 kg Estimated Energy Expenditure (kcals/day) Tmax: 39.7'C, Ve: 14.9 2714 kcal/day (PSU 2002b d/t critical illness) Estimated Protein Required (g/day) 96-120 gm/day (1.2-1.5 gm/kg Adj IBW d/t ARF, sepsis, wound) Estimated Fluid Required (l/day) Per physician d/t ARF Problem/Etiology/Signs/Symptoms Increased nutritional needs related to metabolic demands as evidenced by estimated nutritional requirements for sepsis and wound healing. *ongoing Complicated GI function related to compromised gut integrity as evidenced by elevated GRV *ongoing Altered nutrition-related labs related to endocrine and renal dysfunction as evidenced by abnormal BUN, CRE, BG, and POC BG lab values. *ongoing Expected Outcomes/Goals - Monitor EN tolerance and intakes w/ goal of pt meeting at least 80% of estimated nutritional needs, labs trending WNL, normal GI function, and skin integrity/wt maintenance Dietitian Recommendations * Recommend continuing Nepro 50 ml/hr (goal rate), Kelby BID via GT. Free Water Flush per MD. Follow Up Moderate Risk: F/U in 3-5 days
--- NOTE | 2021-01-03 13:22 | NUR ---
RN NOTE PATIENT IS RESTING IN BED. ON CPAP AND TOLERATING WELL WITH NO SIGNS OF SHORTNESS OF BREATH NOTED. FAMILY AT BEDSIDE. WILL CONTINUE TO MONITOR.
--- NOTE | 2021-01-03 14:00 | NUR ---
WOUND EVALUATION: Late note for 01/03/2021 at 1400 secondary to patient care. Wound Consult received from Dr. Penaloza. Thank you, Dr. Penaloza, for the consult. Patient [facility] with an IsoFlex FAISAL mattress with low air loss therapy, awake, nonverbal, nonresponsive to verbal commands. Patient is unable to turn in bed independently. Trevor Score is an 11. Past Medical History: Chronic Respiratory Failure, Dysphagia, Dementia, G-tube and tracheostomy. Recent labs: WBC 16.6, RBC 2.91, hemoglobin 7.9, hematocrit 24.1, ESR greater than 140, sodium 1 135, chloride 95, BUN 50, creatinine 5.12, GFR 13, glucose 196, POC glucose 202, calcium 7.8, AST 47, alkaline phosphatase 184, albumin 1.5, PT 14.1, INR 1.4. Microbiology: Blood culture results negative. Urine culture results negative. MRSA screen results negative. Sputum culture results positive for Pseudomonas aeruginosa, wound culture results positive for Klebsiella oxytoca (ESBL, MDRO [employer]), and Enterococcus Faecium (VRE). Intrinsic factors that delay wound healing: Severe Hypoalbuminemia, Hyperglycemia. Extrinsic factors that delay wound healing: Immobility. Per assessment by Dr. Murray: IMPRESSION: 1. Altered level of consciousness. 2. Sepsis. 3. Septicemia secondary to urinary tract infection. 4. Status post tracheostomy. 5. Sepsis. 6. Gastrostomy tube dislodgement. 7. Diabetes mellitus. Wound Assessment: 1. Sacral-Coccygeal area: Unstageable pressure ulcer, present on admission. Wound is status post recent surgical debridement by Dr. Muniz (reclassified as a Stage IV post debridement). Wound bed has 50% myles slough, 40% black slough, 10% pink tissue. Mild odor, scant yellow purulent drainage. Periwound intact. Surrounding tissue has dark discoloration around entire perimeter of wound (also present post debridement as it was not removed surgically). Right lateral aspect of wound near periwound has small open area (possible sinus tract). Bone is palpable underneath tissue. Wound measures 17.0 cm x 16.6 cm x 3.1 cm. Right buttock pressure ulcer has resolved. Recommend: Cleanse wound with normal saline. Apply moisture barrier cream to periwound. Apply Venelex ointment to wound bed. Pack wound with 1/2 inch iodoform packing strip. Cover with nonadhesive foam dressings, secure with transparent dressings. Perform wound care daily, and as needed for dressing soiling or dislodgment. Recommend additional debridement and Wound VAC placement. 2. Buttock Cammie-anal areas: Multiple small non-intact skin areas with red tissue from IAD/MASD. No odor, no drainage. Periwounds intact. Recommend: Cleanse involved areas with normal saline. Cover involved areas with Calmoseptine cream. Perform site care 4 times daily and as needed for soiling. 3. Right Achilles: Chronic wound of unknown etiology, present on admission. Wound site has 100% black eschar. No odor, no drainage. Periwound intact. Wound measures 0.9 cm x 0.8 cm. 4. Right Heel: Chronic wound of unknown etiology, present on admission. Wound site has 100% black eschar. No odor, no drainage. Periwound intact. Wound measures 0.4 cm x 0.6 cm. Recommend: Cover both sites with same 4x4 foam dressing for protection. Change dressing and assess sites daily, and as needed for dressing soiling or dislodgment. Elevate, offload and float bilateral heels with one pillow lengthwise under each extremity at all times. 5. Left Lower Extremity: Multiple areas of light brown discoloration, present on admission. 6. Right Lower Extremity: Multiple areas of light brown discoloration, present on admission. Recommend: No dressings needed. Continue to monitor sites every shift. 7. Left Ear: Unstageable pressure ulcer, present on admission. Wound bed has 85% black eschar, 10% yellow eschar, 5% red tissue. No odor, scant yellow drainage. Periwound intact. Wound measures 3.6 cm x 2.4 cm. 8. Right Ear: Healing pressure ulcer of prior unknown stage, present on admission. Wound bed has 100% black eschar which is peeling off (an area with a small pink wound bed is visible). No odor, no drainage, dry. Periwound intact. Surrounding tissue has scar tissue. Wound measures 1.4 cm x 0.5 cm. Recommend: Cleanse wounds with normal saline. Apply sure prep to periwounds. Apply Venelex ointment to wound beds. Cover sites with 4x4 foam dressings. Perform wound care daily, and as needed for dressing soiling or dislodgment. Fold a towel into thirds (maintaining rectangular shape) and place underneath patient's head to elevate bilateral ears off of bed at all times. Also recommend: Reposition patient side to side only every 2 hours with pillow support and off-load pressure areas with pillows for pressure re-distribution. Offload, elevate and float bilateral heels with one pillow lengthwise under each extremity at all times. Fold a towel into thirds (maintaining rectangular shape) and place underneath patient's head to elevate bilateral ears off of bed at all times. Perform skin care and monitor skin integrity Q shift. Use moisture barrier cream on buttocks and other moisture susceptible areas QID and as needed for soiling. Place patient on a P500 low air-loss mattress.
[2021-01-03 20:00] VITALS: BP_SYST 119
--- NOTE | 2021-01-03 21:33 | NUR ---
Dr. Muir - fever s/w Dr. Muir and informed has fever of 103.2 and received orders
[2021-01-03 23:15] VITALS: BP_SYST 124
[2021-01-04] VITALS (9 sets, daily range): BP systolic 90–124
[2021-01-04] MEDS: PIPERACILLIN/TAZOBACTAM 2.25 GM/ D5W 50 ML IV SCH ×10 (01:06→23:50)
[2021-01-04] MEDS: INSULIN REGULAR, HUMAN 100 UNITS/ML, 10 ML VIAL (humuLIN R) SUBCUT PRN ×4 (01:14→17:11)
[2021-01-04] MEDS: ACETAMINOPHEN 650 MG/20.3 ML UDC GT PRN ×3 (04:26→23:52)
[2021-01-04] MEDS: ALBUTEROL SULFATE 0.083% 2.5 MG/3 ML VIAL.NEB INH PRN ×2 (07:21→11:25)
--- NOTE | 2021-01-04 07:40 | NUR ---
OPENING NOTE Received report from night nurse. Patient is alert and oriented x0, nonverbal. On ventilator settings: AC 18, FIO2 4, TV 500, PEEP 5.0. PICC line in right upper arm, saline locked. G tube feedings at 50 ml/hr. Ni catheter and Flexiseal in place. Right IJ Sekou noted. Bed locked and in lowest position. Call light within reach. Bed alarm on. Contact, safety, and aspiration precautions in place. Will continue to monitor.
[2021-01-04] MEDS: METOPROLOL TARTRATE 50 MG TABLET GT SCH ×2 (08:33→20:19)
[2021-01-04] MEDS: BALSAM PERU/CASTOR OIL 60 GM OINT...G. TP SCH (08:34)
--- NOTE | 2021-01-04 09:23 | NUR ---
Spoke to Dr. Muir Patient has elevated RR at 30, HR 112, Temperature 100.3, diaphoretic and BP trending low at 96/70. Informed Dr. Muir on the floor of sepsis risk. to see patient. Orders received for C diff lab and will input new orders herself. Noted and will carry out new labs.
--- NOTE | 2021-01-04 09:43 | NUR ---
Dr. Wilson rounds MD to see patient. Updated MD on patient status. No new orders at this time.
[2021-01-04] MEDS ORDERED: HEPARIN SODIUM,PORCINE 5,000 UNITS/ML VIAL IVP ONE ×2 (10:15→10:45)
--- NOTE | 2021-01-04 10:40 | NUR ---
Dialysis Dialysis started. Dialysis nurse and father at bedside. Will monitor.
--- NOTE | 2021-01-04 11:15 | NUR ---
IV antibiotics Patient still in dialysis. Will hold IV Mycamine and Zosyn until after dialysis is done. Will monitor.
--- NOTE | 2021-01-04 12:50 | NUR ---
Stool sample taken to lab for orders for C diff sample. Patient still in dialysis. VS are stable. Will monitor.
[2021-01-04] MEDS: MICAFUNGIN SODIUM 100 MG in NS 100 ML IV SCH (14:10)
--- NOTE | 2021-01-04 15:40 | NUR ---
RN NOTE Wound care done. Patient cleaned and repositioned. Temperature 103.7. Tylenol given via GT and cooling measures initiated. Temperature went down to 99.0, but HR remains elevated at 140. No signs of respiratory distress . O2 sat remains at 94%. Will monitor.
--- NOTE | 2021-01-04 16:07 | NUR ---
Spoke with Dr. Penaloza regarding patient's elevated HR of 142. Orders for consult Dr. Nathan. Noted and carried out.
--- NOTE | 2021-01-04 16:27 | NUR ---
CONSULTATION PAGED/CALLED Reason for Consultation: [] TACHYCARDIC; ELEVATED HR Person Who was Notified: [] DR CAPPS Consulting Physician: [] LIGIA CARCAMO Hadoop Developer Specialty: [] INSURANCE WRITER Ordering Physician: [] DR RING
[2021-01-04] MEDS ORDERED: MENTHOL/ZINC OXIDE 113 GM OINT. TP PRN (17:00)
--- NOTE | 2021-01-04 17:26 | NUR ---
Dr. Muniz Updated On Wound: Dr. Muniz was updated on the status of the wound and said that he will look at it. Recommended additional debridement and NPWT post debridement.
--- NOTE | 2021-01-04 18:40 | NUR ---
CLOSING NOTE Patient is alert and oriented x0, nonverbal. On ventilator settings: AC 18, FIO2 40, TV 500, PEEP 5.0. PICC line in right upper arm, saline locked. G tube feedings at 50 ml/hr. Ni catheter and Flexiseal in place. Right IJ Sekou noted. Bed locked and in lowest position. Call light within reach. Bed alarm on. Contact, safety, and aspiration precautions remain in place. Will endorse to night nurse.
--- NOTE | 2021-01-04 19:15 | NUR ---
CLOSING NOTES; endorsed by day shift. pt. on vent via trach. on contact isolation for MRSA sputum. pt. non verbal.
--- NOTE | 2021-01-04 20:25 | NUR ---
NOTES: Dr. Muniz here, seen pt. at bedside, debridement will be done in am, girlfriend here and aware.
--- NOTE | 2021-01-04 21:10 | NUR ---
NOTES: pt. sister here and signed the consent for the procedure tomorrow. will be NPO after midnite.
[2021-01-04 22:00] LABS: INR 1.2 (0.80-1.20); PROTHROMBIN TIME 12.6 SECS (9.5-12.5)
[2021-01-05] VITALS (16 sets, daily range): BP systolic 91–125
[2021-01-05] MEDS: INSULIN REGULAR, HUMAN 100 UNITS/ML, 10 ML VIAL (humuLIN R) SUBCUT PRN ×3 (00:11→13:04)
--- NOTE | 2021-01-05 00:15 | NUR ---
NOTES: off feeding. NPO for schedule debridement in am. repositioned. still warm, HR 140's . SBP on low 90's. continuous cooling measures. IV antibiotic given. noted opening of eyes on deep stimulation. rafia cath on rt. jug for hemodialysis.
--- NOTE | 2021-01-05 02:46 | NUR ---
NOTES: pt. suctioned orally and via trach. O2 sat 97%. condition observed.
--- NOTE | 2021-01-05 04:16 | NUR ---
NOTES: HR 135. continue to monitor. repositioned. preop checklist initiated. IV tko.
--- NOTE | 2021-01-05 05:12 | NUR ---
NOTES: Rapid response called, team came, HR down to 87-66, BP 63/32. pt. remain unresponsive. called Dr. [place], cardiology consult.
--- NOTE | 2021-01-05 05:14 | NUR ---
MARIFER CAPPS, Addendum: 01/05/21 at 0515 by Oly Bellamy CNA CALLED [phone]
--- NOTE | 2021-01-05 05:15 | NUR ---
NOTES: Dr. Nathan called and informed about the low HR and low BP. aware pt. already on the vent. BS 269. MD ordered to transfer to ICU and give 1liter NS bolus in the meantime.
--- NOTE | 2021-01-05 05:25 | NUR ---
RT NOTES RESPONDED TO RAPID RESPONSE. TRANSFERRED TO ICU 1 WHILE CONNECTED TO VENTILATOR. FIO2 INCREASED TO 100%. ABG TO BE DONE.
--- NOTE | 2021-01-05 05:25 | NUR ---
NOTES: pt. transferred to ICU via bed , ambu bagged by RT via trach and monitored accompanied by nurse filtration supervisor and charge nurse. Addendum: 01/05/21 at 0606 by Meryl Lee RN late entry 0600 pt. sister called and informed him about pt. transferred to ICU for low BP and low HR@60's. Dr. Burgos called to inform about the Rapid response and transfer to ICU. will call Dr. Muniz and will leave message.
--- NOTE | 2021-01-05 05:25 | NUR ---
Patient received from TELE after CHORE WORKER called overhead. Patient hypotensive, bed in trendelenberg. NS bolus running. health care coordinator calling Dr for Levophed orders. Patient's HR elevated, ST. Obmn=730.0F. ABG to be obtained soon.
[2021-01-05] MEDS ORDERED: NACL 0.9% 1,000 ML IV ONE (05:30)
--- NOTE | 2021-01-05 05:31 | NUR ---
PAGEKwame CAPPS [phone] SPOKE WITH
[2021-01-05] MEDS ORDERED: NOREPINEPHRINE BITARTRATE 8 MG in NS 242 ML IV PRN (05:45)
--- NOTE | 2021-01-05 05:45 | NUR ---
NOTES; late entry report given to ICU nurse
[2021-01-05] MEDS: PIPERACILLIN/TAZOBACTAM 2.25 GM/ D5W 50 ML IV SCH ×2 (06:51)
[2021-01-05 07:08] LABS: BASOPHILS # (AUTO) 0.3 K/uL (0.0-0.2); BASOPHILS % (AUTO) 0.9 % (0.0-2.0); EOSINOPHILS # (AUTO) 0.2 K/uL (0.0-0.4); EOSINOPHILS % (AUTO) 0.6 % (0.0-4.0); HEMATOCRIT 25.9 % (36-54); HEMOGLOBIN 8.1 g/dL (14.0-18.0); LYMPHOCYTES # (AUTO) 2.1 K/uL (1.0-5.5); LYMPHOCYTES % (AUTO) 7.8 % (20.5-51.5); MEAN CORPUSCULAR HEMOGLOBIN 27 pg (27-31); MEAN CORPUSCULAR HGB CONC 31 % (32-36); MEAN CORPUSCULAR VOLUME 84 fL (79.0-98.0); MONOCYTES # (AUTO) 2.6 K/uL (0.0-1.0); MONOCYTES % (AUTO) 9.5 % (1.7-9.3); NEUTROPHILS # (AUTO) 22.5 K/uL (1.8-7.7); PLATELET COUNT (AUTO) 434 K/uL (130-430); RED BLOOD CELL COUNT(AUTO) 3.07 MIL/uL (4.2-6.2); RED CELL DISTRIBUTION WIDTH 18.6 % (9.0-15.0); WHITE BLOOD COUNT (AUTO) 27.7 K/uL (4.8-10.8)
[2021-01-05 07:25] LABS: CALCIUM 7.7 mg/dL (8.4-11.0); CREATININE 5.44 mg/dL (0.55-1.30); POTASSIUM 4.5 mmol/L (3.5-5.1)
[2021-01-05] MEDS: ACETAMINOPHEN 650 MG/20.3 ML UDC GT PRN (07:42)
[2021-01-05] MEDS: METOPROLOL TARTRATE 50 MG TABLET GT SCH (09:00)
[2021-01-05] MEDS ORDERED: BALSAM PERU/CASTOR OIL 60 GM OINT...G. TP SCH (09:00)
[2021-01-05] MEDS: NACL 0.9% 1,000 ML IV SCH ×2 (09:37→10:31)
[2021-01-05] MEDS: BALSAM PERU/CASTOR OIL 60 GM OINT...G. TP SCH (09:40)
[2021-01-05] MEDS: DAPTOMYCIN IV SCH (11:09)
[2021-01-05] MEDS: NS IV SCH (11:09)
[2021-01-05] MEDS: MICAFUNGIN SODIUM 100 MG in NS 100 ML IV SCH (11:44)
[2021-01-05 13:40] LABS: NEUTROPHILS % (AUTO) 81.2 % (40.0-70.0)
--- NOTE | 2021-01-05 15:33 | NUR ---
RN NOTES PATIENT NOTED TO HAVE NO PULSE, PEA TO ASYSTOLE ON THE MONITOR. CODE BLUE CALLED. CPR INITIATED. EPINEPHRINE GIVEN IVP. DR. DODIE CERON/MD AT BEDSIDE. SEE CODE BLUE SHEET FOR RESUSCITATION DOCUMENTATION.
--- NOTE | 2021-01-05 15:33 | NUR ---
1533 LEVOPHED 8 MG IN NACL 242 ML GIVEN @ 1MCG/KG/MIN.
--- NOTE | 2021-01-05 15:50 | NUR ---
RN NOTES FAMILY CALLED, DR. STOLL SPOKE TO THE PATIENT FATHER. MADE AWARE OF PATIENT PRESENT CONDITION.
[2021-01-05] MEDS ORDERED: CALCIUM GLUCONATE 1 GM/10 ML VIAL ONE (15:55)
[2021-01-05] MEDS ORDERED: CALCIUM CHLORIDE 1 GM/10 ML DISP.SYRIN (14 mEq Ca++/SYR) ONE (15:56)
--- NOTE | 2021-01-05 16:10 | NUR ---
RN NOTES PATIENT STILL NO PULSE AFTER ALL RESUSCITATION EFFORT. DR. STOLL PRONOUNCED PATIENT AT 1610.
--- NOTE | 2021-01-05 16:20 | NUR ---
RN NOTES SINGLE NEEDLE TUFTING MACHINE OPERATOR'S NOTIFIED - PT IS NOT A SINGLE NEEDLE TUFTING MACHINE OPERATOR'S [employer] NOTIFIED - NOT A CANDIDATE FOR ORGAN DONATION PER [employer] REFERENCE# [id number]
--- NOTE | 2021-01-05 16:35 | NUR ---
RN NOTE FAMILY HERE TO SEE PATIENT.
== END 2021-01-05 19:00 | DRG 710 ==
LOC: SED 16:27 → STU 20:38 → SIC 12-23 09:15 → STU 01-01 19:02 → SIC 01-05 05:26
PROVIDERS: ADMIT Internal Medicine Hospice and Palliative Medicine; ATTEND Internal Medicine Hospice and Palliative Medicine
PROC: 5A1955Z Respiratory Ventilation, Greater than 96 Consecutive Hours (ICD-10-PCS; principal; 2020-12-19)
PROC: 02HV33Z Insertion of Infusion Device into Superior Vena Cava, Percutaneous Approach (ICD-10-PCS; 2020-12-23)
PROC: B548ZZA Ultrasonography of Superior Vena Cava, Guidance (ICD-10-PCS; 2020-12-23)
PROC: 5A1D70Z Performance of Urinary Filtration, Intermittent, Less than 6 Hours Per Day (ICD-10-PCS; 2020-12-23)
PROC: 5A1D70Z Performance of Urinary Filtration, Intermittent, Less than 6 Hours Per Day (ICD-10-PCS; 2020-12-24)
PROC: 0JB70ZZ Excision of Back Subcutaneous Tissue and Fascia, Open Approach (ICD-10-PCS; 2020-12-26)
PROC: 30233N1 Transfusion of Nonautologous Red Blood Cells into Peripheral Vein, Percutaneous Approach (ICD-10-PCS; 2020-12-26)
PROC: 5A1D70Z Performance of Urinary Filtration, Intermittent, Less than 6 Hours Per Day (ICD-10-PCS; 2020-12-26)
PROC: 5A1D70Z Performance of Urinary Filtration, Intermittent, Less than 6 Hours Per Day (ICD-10-PCS; 2020-12-28)
PROC: 5A1D70Z Performance of Urinary Filtration, Intermittent, Less than 6 Hours Per Day (ICD-10-PCS; 2020-12-30)
PROC: 5A1D70Z Performance of Urinary Filtration, Intermittent, Less than 6 Hours Per Day (ICD-10-PCS; 2021-01-02)
PROC: 5A1D70Z Performance of Urinary Filtration, Intermittent, Less than 6 Hours Per Day (ICD-10-PCS; 2021-01-04)
PROC: 0QB10ZZ Excision of Sacrum, Open Approach (ICD-10-PCS; 2021-01-05)
DX: A41.9 Sepsis, unspecified organism (principal); J96.20 Acute and chronic respiratory failure, unspecified whether with hypoxia or hypercapnia; N17.0 Acute kidney failure with tubular necrosis; R65.21 Severe sepsis with septic shock; M72.6 Necrotizing fasciitis; B49 Unspecified mycosis; G93.1 Anoxic brain damage, not elsewhere classified; J15.1 Pneumonia due to Pseudomonas; L89.159 Pressure ulcer of sacral region, unspecified stage; K94.23 Gastrostomy malfunction; Z99.11 Dependence on respirator [ventilator] status; E87.1 Hypo-osmolality and hyponatremia; E11.65 Type 2 diabetes mellitus with hyperglycemia; E11.52 Type 2 diabetes mellitus with diabetic peripheral angiopathy with gangrene; N39.0 Urinary tract infection, site not specified; F03.90 Unspecified dementia, unspecified severity, without behavioral disturbance, psychotic disturbance, mood disturbance, and anxiety; I96 Gangrene, not elsewhere classified; Y95 Nosocomial condition; Z16.21 Resistance to vancomycin; B95.2 Enterococcus as the cause of diseases classified elsewhere; E88.09 Other disorders of plasma-protein metabolism, not elsewhere classified; E87.5 Hyperkalemia; I12.9 Hypertensive chronic kidney disease with stage 1 through stage 4 chronic kidney disease, or unspecified chronic kidney disease; E11.22 Type 2 diabetes mellitus with diabetic chronic kidney disease; N18.9 Chronic kidney disease, unspecified; L98.429 Non-pressure chronic ulcer of back with unspecified severity; D64.9 Anemia, unspecified; E83.39 Other disorders of phosphorus metabolism; E83.42 Hypomagnesemia; E83.52 Hypercalcemia; Z20.822 Contact with and (suspected) exposure to COVID-19; Z79.1 Long term (current) use of non-steroidal anti-inflammatories (NSAID); Z79.82 Long term (current) use of aspirin; Z79.899 Other long term (current) drug therapy; Z86.19 Personal history of other infectious and parasitic diseases; Z87.01 Personal history of pneumonia (recurrent); Z87.442 Personal history of urinary calculi
CPT/HCPCS: 36415; 36600; 70450-TC; 71045; 74018; 74240-TC; 76376; 76770; 80048; 80053; 80202; 81000; 82803-TC; 82962; 83605; 83735; 83930; 84100; 84484; 85007; 85025; 85027; 85610-TC; 85651-TC; 85730-TC; 86140; 86886; 86900; 86901; 86920; 87040-TC; 87070-TC; 87075-TC; 87081; 87086; 87186-TC; 87205-TC; 87230-TC; 88304; 90935; 90937; 92950; 93005; 94002; 94003; 94640; 94760; 96365; 96367; 99291; G0378; J0456; J0610; J0690; J0878; J0885; J1450; J1644; J1815; J2248; J2270; J2543; J2916; J3370; J3490; J7050; J7060; J7613; P9021; Q9963